=== PATIENT | female | born 1975 | race Caucasian/White ===

== ENCOUNTER 2020-07-28 10:50 | Outpatient (CLI) | payer OTHER, SELFPAY ==
--- NOTE | 2020-07-28 10:58 | MM_ITS ---
WS: [id number] BILATERAL SCREENING DIGITAL MAMMOGRAM WITH CAD HISTORY: SCREENING COMPARISON: 07/24/2018 and 05/05/2017 Bilateral CC and MLO views submitted. Computer aided detection analyzed. Breast composition: The breasts are heterogeneously dense, which may obscure small masses. No suspici ous masses, microcalcifications or architectural distortion. MM/[id number] IMPRESSION: BI-RADS: 1-Negative FOLLOW UP: 1 Year Follow-up
== END 2020-07-28 10:51 | disposition home or self-care (01) ==
LOC: RADSHAW 10:55
PROVIDERS: Visit Provider Nurse Practitioner Family
DX: Z12.31 Encounter for screening mammogram for malignant neoplasm of breast (principal)
CPT/HCPCS: 77067

== ENCOUNTER 2021-07-06 09:58 | Outpatient (CLI) | payer OTHER, SELFPAY ==
--- NOTE | 2021-07-06 10:11 | MM_ITS ---
WS: [id number] Bilateral screening 3D tomosynthesis digital mammogram, 07/06/2021 Clinical Data: SCREENING Comparison: 07/28/2020, 07/24/2018, 05/05/2017. Findings: The breast parenchymal pattern shows heterogeneous density. No spiculated masses or clustered calcifi cations are seen. There are no secondary signs of carcinoma. MM/[id number] Impression: 1. Negative bilateral mammogram unchanged. 2. Recommend annual screening mammograms. BIRADS: 1-Negative FOLLOW UP: 1 Year Follow-up The CAD plan checker was used.
== END 2021-07-06 09:59 | disposition home or self-care (01) ==
LOC: RAD 10:04
PROVIDERS: Visit Provider Family Medicine
DX: Z12.31 Encounter for screening mammogram for malignant neoplasm of breast (principal)
CPT/HCPCS: 77063; 77067

== ENCOUNTER 2022-08-16 09:30 | Outpatient (CLI) | payer OTHER, SELFPAY ==
--- NOTE | 2022-08-16 09:37 | MM_ITS ---
WS: [id number] DIAGNOSTIC BILATERAL DIGITAL BREAST TOMOSYNTHESIS MAMMOGRAPHY WITH CAD LEFT breast ultrasound, limited HISTORY: LT BREAST LUMP COMPARISON: 07/06/2021 and 07/28/2020 TECHNIQUE: Bilateral craniocaudad, mediolateral oblique, and mediolateral views are submitted with to mosynthesis and SM. Spot compression LEFT CC. Computer aided detection utilized. Breast composition: The breasts are heterogeneously dense, which may obscure small masses. There is a new spiculated mass centered in the medial inferior LEFT breast measuring 3.4 x 3.1 cm. High density mass with irregular borders. This is new since 07/06/2021. No additional abnormality. LEFT breast ultrasound, limited. Irregular, spiculated hypoechoic mass with increased vascularity in the LEFT breast at 9:00, 3 cm fro m the nipple. Mass corresponds to the mammographic abnormality. Mass measures 2.5 x 2.6 x 3.5 cm. Thi s mass may extend into the subcutaneous soft tissue. Mass does appear to extend intraductal. Normal L EFT axillary lymph nodes. Normal vascularity. Normal preservation of the fatty hilum. MM/[id number] IMPRESSION: BI-RADS: 5-Highly Suggestive of Malignancy FOLLOW UP: Biopsy Recommended Ultrasound-guided biopsy recommended LEFT breast mass at 9:00. Notified Michela Gomez APRN CNM [facility] at 08/16/2022 10:40 AM. Discussed report with Dayana.
== END 2022-08-16 09:31 | disposition home or self-care (01) ==
DX: N63.24 Unspecified lump in the left breast, lower inner quadrant (principal)
CPT/HCPCS: 76642; 77062; G0279

== ENCOUNTER 2022-08-28 13:57 | Outpatient (CLI) | payer MEDICAID, SELFPAY ==
--- NOTE | 2022-08-28 14:03 | US_ITS ---
WS: [id number] ULTRASOUND-GUIDED LEFT BREAST BIOPSY CLINICAL INFORMATION: LUMP IN BREAST COMPARISON: August 16, 2022 FINDINGS: The procedure including risks, benefits, and complications were discussed with the patient who agreed to proceed. Using sterile technique patient was prepped and draped in the usual sterile fashion. Aft er 1% lidocaine utilizing real-time ultrasound guidance 8 14-gauge cores were obtained of the LEFT br east lesion at the 9 o'clock position 3 cm from the nipple. Subsequently a titanium clip was placed i n the biopsy cavity. No immediate complications. Pathology demonstrates: A. Breast, left, 9 o'clock, 3 cm from nipple , ultrasound-guided biopsy: - Invasive ductal carcinoma, NOS. - Anders Corado grade 3 (score 8). - Breast prognostic profile and additional BRCA 1/2 mutation testing has been performed. US/[id number] IMPRESSION: 1. Uncomplicated ultrasound-guided LEFT breast biopsy. 2. The pathology demonstrates invasive ductal carcinoma. 3. Breast cancer prognostic profile pending. BI-RADS: 6-Known Biopsy-Proven Malignancy FOLLOW UP: Surgical Biopsy Recommended Recommend Breast surgery consultation. Notified Michela Gomez APRN CNM [facility] at 08/29/2022 11:38 AM.
[2022-09-02 12:26] LABS: Breast Profile ER,PR,HER2,Ki-6 See Report
[2022-09-17 08:16] LABS: Miscellaneous Test See Scanned Lab Rpt
== END 2022-08-28 13:58 | disposition home or self-care (01) ==
PROVIDERS: Visit Provider Advanced Practice Midwife
DX: C50.812 Malignant neoplasm of overlapping sites of left female breast (principal)
CPT/HCPCS: 19083; 81162; 88305; 88361; 88374

== ENCOUNTER 2023-01-01 18:52 | Observation (INO) | payer MEDICAID, SELFPAY ==
[2023-01-01 19:05] VITALS: BP 157/96; PULSE 119; RESP 16; TEMP 38; O2SAT 96; BMI 29.5
--- NOTE | 2023-01-01 19:56 | CTR_ITS ---
PROCEDURE INFORMATION: Exam: CT Abdomen And Pelvis With Contrast Exam date and time: 01/01/2023 8:14 PM Age: 47 years old Clinical indication: Pain; Other: Rectal abscess TECHNIQUE: Imaging protocol: Computed tomography of the abdomen and pelvis with contrast. Radiation optimization: All CT scans at this facility use at least one of these dose optimization techniques: automated exposure control; mA and/or kV adjustment per patient size (includes targeted exams where dose is matched to clinical indication); or iterative reconstruction. Contrast material: OMNI 350; Contrast volume: 100 ml; Contrast route: INTRAVENOUS (IV); REPORTING DATA: Count of CT and Cardiac NM exams in prior 12 months: This patient has received 0 known CTs and 0 known cardiac nuclear medicine studies in the 12 months prior to the current study. COMPARISON: CR XR chest 1V [id number] 06/24/2017 7:10 PM RADIATION DOSE METRICS: Total DLP (mGy-cm): 1076 FINDINGS: Lungs: Atelectatic changes at the lung bases. Liver: Unremarkable. Gallbladder and bile ducts: Mild biliary ductal dilation which is likely related to post cholecystectomy state. Pancreas: Unremarkable. Spleen: Unremarkable. Adrenal glands: Unremarkable. Kidneys and ureters: Unremarkable. No hydronephrosis. Stomach and bowel: Unremarkable. No bowel obstruction. Appendix: No evidence of appendicitis. Intraperitoneal space: Unremarkable. Vasculature: Minimal atherosclerotic calcification of the abdominal aorta. Lymph nodes: Unremarkable. Urinary bladder: Unremarkable as visualized. Reproductive: Unremarkable as visualized. Bones/joints: No acute osseous abnormality. Soft tissues: Thick-walled peripherally enhancing soft tissue density in the left perineum measuring 3.8 cm with soft tissue stranding extending superiorly within the left perianal fat between the internal and external sphincter. Mild stranding within the left ischioanal fossa external to the external sphincter. CT/CT abdomen pelvis w con* [id number] IMPRESSION: Thick-walled peripherally enhancing soft tissue density in the left perineum measuring 3.8 cm likely representing phlegmon and early left perianal abscess formation.
--- NOTE | 2023-01-01 19:59 | ED_ITS ---
HPI - Skin/Abscess/Foreign Bdy General: Chief complaint: Skin/Abscess/Foreign Body Stated complaint: on chemo, has fever, rectal pain Time Seen by Provider: 01/01/23 19:30 Source: patient Mode of arrival: ambulatory Limitations: no limitations History of Present Illness: 47-year-old female history of breast cancer she is currently on chemo she had 1 chemo treatment that was a week ago Friday she states that she been having some rectal pain today she had spiked a fever is febrile here. She states that when she went to the bathroom she had feared out that she had an abscess as it opened up and started draining she states she had a large amount of purulent drainage that is continuing draining still. She does have pain at the site rates the pain a 5 out of 10. Associated symptoms: Reports chills and fever(s); Deny nausea or vomiting Review of Systems Const: Reports: fever(s) and chills; Denies: body aches or change in appetite Eyes: Denies: blurry vision or eye discomfort ENMT: Denies: throat pain or dental pain Card: Denies: chest pain Resp: Denies: dyspnea GI: Denies: abdominal pain, nausea, vomiting or diarrhea : Denies: dysuria Musc: Denies: neck pain or back pain Skin/Breast: Denies: rash Neuro: Denies: headache(s) Physical Exam Const: COMMON NORMALS: no acute distress, patient oriented x3 and healthy appearing HENMT: COMMON NORMALS: normocephalic and atraumatic HEAD & SCALP: normocephalic and atraumatic Neck/C-Spine: COMMON NORMALS: full ROM and supple Chest: COMMONS NORMALS: normal inspection of the chest and normal palpation of entire chest wall Resp: COMMON NORMALS: normal respiratory effort, No retractions, No use of accessory muscles and clear to auscultation bilaterally AUSCULTATION: clear to auscultation bilaterally Cardio: COMMON NORMALS: regular rate, regular rhythm and No murmurs present (Cardio) RATE: regular rate RHYTHM: regular rhythm GI: COMMON NORMALS: Normal to inspection, nondistended, normoactive bowel sounds present, Soft to palpation, non-tender and no masses PALPATION: Yes Soft to palpation OTHER: Abscess noted on the left inner buttocks that is currently open and draining purulent material Extremity: COMMON NORMALS: normal to inspection and full ROM Neuro: COMMON NORMALS: patient oriented x3, moves all extremities and no focal motor deficits Psych: COMMON NORMALS: mental status grossly normal, Normal thought process present and cooperative THOUGHT PROCESS: Normal thought process present Skin: COMMON NORMALS: no rashes or lesions noted and no wounds GENERAL SKIN EXAM: no rashes or lesions noted Course Vital Signs: Vital signs: Vital Signs Temperature 100.4 F H 01/01/23 19:05 Pulse Rate 119 H 01/01/23 19:05 Respiratory Rate 16 01/01/23 19:05 Blood Pressure 157/96 01/01/23 19:05 Pulse Oximetry 96 01/01/23 19:05 Oxygen Delivery Me thod Room Air 01/01/23 19:05 MDM - Skin/Abscess/Foreign Bdy Medicial Decision Making Patient presents here with a fever she is also found to have a perianal abscess. On exam the abscess is already open and draining at this time does not require further incision she is on chemo spoke to hospitalist along with general surgeon will admit on observation for IV antibiotics. Medical Records I reviewed the patient's medical records. Lab Data I reviewed the patient's lab results. 01/01/23 20:11 01/01/23 20:11 Radiology Impressions Abdomen/Pelvis CT 01/01/23 19:56 IMPRESSION: Thick-walled peripherally enhancing soft tissue density in the left perineum measuring 3.8 cm likely representing phlegmon and early left perianal abscess formation. Laboratory Results WBC 10.90 10^3/uL (3.29-11.43) 01/01/23 20:11 RBC 4.60 10^6/uL (3.85-5.65) 01/01/23 20:11 Hgb 13.70 g/dL (11.27-16.99) 01/01/23 20:11 Hct 42.3 % (36-47) 01/01/23 20:11 MCV 92.0 fl (85-98) 01/01/23 20:11 MCH 29.8 pg (27-33) 01/01/23 20:11 MCHC 32.4 g/dL (30-55) 01/01/23 20:11 RDW 13.6 % (12.1-15.1) 01/01/23 20:11 Plt Count 225 10^3/cmm (157-399) 01/01/23 20:11 MPV 9.1 fL (7.4-10.4) 01/01/23 20:11 Neut % (Auto) 56.4 % 01/01/23 20:11 Lymph % (Auto) 25.5 % 01/01/23 20:11 Chambers % (Auto) 12.1 % 01/01/23 20:11 Eos % (Auto) 0.3 % 01/01/23 20:11 Baso % (Auto) 0.7 % 01/01/23 20:11 Neut # (Auto) 6.15 10^3/uL (1.8-7.7) 01/01/23 20:11 Lymph # (Auto) 2.8 10^3/uL (0.8-4.8) 01/01/23 20:11 Chambers # (Auto) 1.3 10^3/uL (0.2-0.9) H 01/01/23 20:11 Eos # (Auto) 0.0 10^3/uL (0.0-0.8) 01/01/23 20:11 Baso # (Auto) 0.1 10^3/uL (0.0-0.1) 01/01/23 20:11 Nucleated RBC % (auto) 0 % 01/01/23 20:11 Nucleated RBCs # 0.0 /100WBC 01/01/23 20:11 Sodium 138 mmol/L (136-145) 01/01/23 20:11 Potassium 4.2 mmol/L (3.5-5.1) 01/01/23 20:11 Chloride 102 mmol/L (98-107) 01/01/23 20:11 Carbon Dioxide 24 mmol/L (22-29) 01/01/23 20:11 Anion Gap 16.2 (5-19) 01/01/23 20:11 BUN 11 mg/dL (6-20) 01/01/23 20:11 Creatinine 0.7 mg/dL (0.5-0.9) 01/01/23 20:11 GFR Calculation 90.5 mL/min (90-130) 01/01/23 20:11 Glucose 109 mg/dL (65-115) 01/01/23 20:11 Calculated Osmolality 286 mOsm/kg (285-295) 01/01/23 20:11 Lactic Acid 1.3 mmol/L (0.5-2.2) 01/01/23 20:11 Calcium 9.1 mg/dL (8.5-10.5) 01/01/23 20:11 Total Bilirubin 0.2 mg/dL (0.15-1.2) 01/01/23 20:11 AST 18 U/L (0-32) 01/01/23 20:11 ALT 37 U/L (0-33) H 01/01/23 20:11 Alkaline Phosphatase 94 U/L (35-105) 01/01/23 20:11 Total Protein 7.1 g/dL (6.6-8.7) 01/01/23 20:11 Albumin 3.9 g/dL (3.5-5.2) 01/01/23 20:11 Globulin 3.2 g/dL (1.3-4.6) 01/01/23 20:11 All radiology interpretation(s) finalized by discharge Discharge Plan Discharge Patient Disposition: Placed in Observation Clinical Impression: Abscess, perianal, Fever Condition: Stable Coding Level of Care Code ED Unit Secy for Nilo Lauren
[2023-01-01] MEDS: sodium chloride 0.9% 1,000 ML 999 ML IV (20:06)
[2023-01-01] MEDS: HYDROmorphone 1 mg/mL INJ 1 mL IVP (20:06)
[2023-01-01] MEDS: ondansetron 2 mg/ML SDV 2 mL 4 MG IVP (20:06)
[2023-01-01 20:31] LABS: Basophils # 0.1 10^3/uL (0.0-0.1); Basophils % 0.7 %; Eosinophils % 0.3 %; Hematocrit 42.3 % (36-47); Lymphocytes # 2.8 10^3/uL (0.8-4.8); Lymphocytes % 25.5 %; Mean Corpuscular HGB Conc 32.4 g/dL (30-55); Mean Corpuscular Hemoglobin 29.8 pg (27-33); Mean Platelet Volume 9.1 fL (7.4-10.4); Monocytes # 1.3 10^3/uL (0.2-0.9); Monocytes % 12.1 %; Neutrophils # 6.15 10^3/uL (1.8-7.7); Neutrophils % 56.4 %; Nucleated Red Blood Cells % 0 %; Platelet Count 225 10^3/cmm (157-399); Red Cell Distribution Width 13.6 % (12.1-15.1)
[2023-01-01 20:51] LABS: Alanine Aminotransferase 37 U/L (0-33); Albumin Level 3.9 g/dL (3.5-5.2); Alkaline Phosphatase 94 U/L (35-105); Anion Gap 16.2 (5-19); Aspartate Amino Transferase 18 U/L (0-32); Blood Urea Nitrogen 11 mg/dL (6-20); Calcium 9.1 mg/dL (8.5-10.5); Carbon Dioxide 24 mmol/L (22-29); Chloride 102 mmol/L (98-107); Globulin 3.2 g/dL (1.3-4.6); Glomerular Filtration Rate 90.5 mL/min (90-130); Glucose 109 mg/dL (65-115); Osmolality Calculated 286 mOsm/kg (285-295); Potassium 4.2 mmol/L (3.5-5.1); Sodium 138 mmol/L (136-145); Total Bilirubin 0.2 mg/dL (0.15-1.2); Total Protein 7.1 g/dL (6.6-8.7)
[2023-01-01 20:52] LABS: Lactic Sepsis W/Reflex 1.3 mmol/L (0.5-2.2)
--- NOTE | 2023-01-01 20:59 | PM.HP ---
Providers/Chief Complaint Admitting Physician: Jaiden Olsen MD Chief Complaint: on chemo, has fever, rectal pain History of Present Illness Nancie Brown is a 47 year old female with a past medical history significant for left-sided invasive ductal carcinoma who presents to the emergency department with perirectal pain. Patient reports symptoms started last Friday. She was seen by her provider with concern for hemorrhoids, recommending symptomatic support. Symptoms continued to worsen to the pain it was difficult to ambulate due to the pain. She endorses associated fever as well. In the ED, there was concern for perirectal abscess. CT imaging showed a 3.8 cm likely representing phlegmon and early left perianal abscess formation. Per report, ED provider noted purulence suggesting drainage. Patient also endorses improvement in pressure symptoms. Patient notes recent constipation attributed to chemotherapy treatment requiring fairly recent enema and suppository. She does have a history of a prior perirectal abscess in 2009. Of note, patient is on treatment for left-sided breast cancer. She is receiving her cancer care at [facility]. She reports she has updated her oncology team regarding her infection. Review of Systems Narrative: A complete review of systems was obtained and is negative except as stated in HPI. Medications/Allergies Home Medications Medication Instructions Recorded Confirmed Last Taken Type alprazolam 0.25 mg tablet (Xanax) 0.25 mg PO TID PRN Anxiety 01/01/23 01/01/23 Unknown History calcium carb-ergocalciferol (vit 1 tab PO BID 01/01/23 01/01/23 01/01/23 History D2) 600 mg calcium-200 unit tablet dexamethasone 4 mg tablet 4 mg PO DAILY PRN after chemo 01/01/23 01/01/23 1 Week Ago History ~12/25/22 hydroxyzine HCl 25 mg tablet 25 mg PO QID PRN Anxiety 01/01/23 01/01/23 1 Day Ago History ~12/31/22 loratadine 10 mg tablet (Claritin) 10 mg PO DAILY 01/01/23 01/01/23 01/01/23 History multivitamin 1 tab PO DAILY 01/01/23 01/01/23 01/01/23 History ondansetron 8 mg disintegrating 8 mg PO Q8H PRN Nausea 01/01/23 01/01/23 3 Days Ago History tablet ~12/29/22 polyethylene glycol 3350 17 gram 17 g PO DAILY 01/01/23 01/01/23 01/01/23 History oral powder packet (Miralax) prochlorperazine maleate 10 mg 10 mg PO Q6H PRN Nausea 01/01/23 01/01/23 3 Days Ago History tablet (Compazine) ~12/29/22 sennosides 8.6 mg capsule (senna) 8.6 mg PO DAILY 01/01/23 01/01/23 01/01/23 History Allergies Allergy/AdvReac Type Severity Reaction Status Date / Time No Known Allergies Allergy Verified 01/01/23 21:37 PFSH Acute PFSH: Medical History (Updated 01/01/23 @ 22:32 by Jaiden Olsen MD) Breast cancer, left breast Cervical dysplasia Migraine Surgical History (Updated 01/01/23 @ 22:17 by Jaiden Olsen MD) H/O left breast biopsy History of cholecystectomy Family History (Updated 01/01/23 @ 22:08 by Jaiden Olsen MD) Mother Sarcoidosis Social History (Updated 01/01/23 @ 22:30 by Jaiden Olsen MD) Smoking and tobacco/nicotine status: former use of tobacco/nicotine Alcohol intake: never Substance/Drug Use: never Vitals/I&O/Wt Last Vital Signs Temp 100.4 F H 01/01/23 19:05 Pulse 119 H 01/01/23 19:05 Resp 16 01/01/23 19:05 BP 157/96 01/01/23 19:05 Pulse Ox 96 01/01/23 19:05 O2 Del Method Room Air 01/01/23 19:05 Weight last 48 hrs Weight 90.718 kg Physical Exam Narrative: General: Patient is awake and alert. Very pleasant. Head: Normocephalic. Atraumatic. Neck: No JVD. Cardiovascular: RRR. No gallops. No murmurs. Lungs: Clear to auscultation, no use of accessory muscles, no crackles or wheezes. Skin: No jaundice. No rashes. Abdomen: Normal bowel sounds, abdomen soft and nontender. Extremities: No cyanosis or clubbing. Rectal: Perirectal inflammation palpated. Tender to palpation. Musculoskeletal: No swollen or erythematous joints. Neurological: Moves all 4 extremities. No myoclonus. Data 01/01/23 20:11 01/01/23 20:11 A&P Assessment and plan (1) Abscess, perianal: Wound culture obtained Status post vancomycin in ED Check MRSA swab Start Zosyn for broad gram negative and anaerobic coverage General surgery consulted, appreciate recommendations NPO after midnight for general surgery evaluation Multimodal pain control (2) Fever: As above (3) Breast cancer, left breast: Immunosuppressed 2/2 treatment (4) Constipation: Continue home Senna and MiraLAX May need to escalate bowel regimen Plan DVT ppx: Lovenox Attestations Medical Necessity Statement*: Patient presents with fevers in the setting of immunosuppression from cancer treatment, found to have perianal abscess with expected hospitalization not to cross two midnights for general surgery evaluation, IV antibiotics and supportive care. Coding Level of Care Code Acute Code for [facility] Diagnoses Abscess, perianal K61.0 Fever R50.9 Breast cancer, left breast C50.912 Constipation K59.00
[2023-01-01] MEDS: vancomycin 1,000 MG in sodium chloride 0.9% 250 ML 250 MG IV (21:10)
[2023-01-01 21:19] VITALS: BP 123/77; PULSE 88; RESP 16; O2SAT 95
[2023-01-01 21:28] LABS: Add Urine Microscopic? YES; Bilirubin Urine Neg (Negative); Blood Urine 2+ (Negative); Glucose Urine UA Norm (Normal); Ketones Urine Negative (Negative); Leukocyte Esterase Urine Negative (Negative); Nitrate Urine Negative (Negative); Protein Urine Neg (Negative); Specific Gravity, Urine 1.005 (1.005-1.030); Urine Appearance Clear (CLEAR); Urine Color Yellow (Yellow); Urobilinogen Urine Neg (Negative); pH Urine 7 (5-7)
[2023-01-01 21:29] LABS: Add Urine Culture? No; Bacteria Urine 1+ /hpf
[2023-01-01 21:32] VITALS: BP 124/76; PULSE 109; RESP 17; TEMP 37.1; O2SAT 96
[2023-01-01 21:44] VITALS: BP 123/77; PULSE 88; RESP 16; TEMP 38; O2SAT 95
[2023-01-01 21:57] VITALS: RESP 16
[2023-01-01] MEDS: piperacillin-tazobactam 3.375 GM in sodium chloride 0.9% (plus) 50 ML IV (21:57)
[2023-01-01] MEDS: oxyCODONE-APAP 5-325 mg Tablet 1 TAB PO (21:57)
[2023-01-01 22:00] VITALS: PULSE 99
[2023-01-01 22:24] LABS: Procalcitonin 0.08 ng/mL (0-0.5)
--- NOTE | 2023-01-01 23:16 | PC.NURSE ---
Patient states that one of her doctors told her she can't take blood thinners, not even Ibuprofen. Dr. Olsen notified that patient stated this and ordered to d/c Lovenox and order SCDs.
[2023-01-02] VITALS (26 sets, daily range): BP systolic 102–135; BP diastolic 62–83; PULSE 75–99; RESP 13–20; TEMP 36.2–36.9; O2SAT 91–97; BMI 34.9
[2023-01-02] MEDS: HYDROmorphone 1 mg/mL INJ 1 mL 0.2 MG IVP ×3 (00:14→22:22)
[2023-01-02] MEDS: oxyCODONE-APAP 5-325 mg Tablet 1 TAB PO ×3 (05:13→20:43)
[2023-01-02] MEDS: ondansetron 2 mg/ML SDV 2 mL 4 MG IVP ×3 (05:13→20:43)
[2023-01-02] MEDS: piperacillin-tazobactam 3.375 GM in sodium chloride 0.9% (plus) 50 ML IV ×3 (05:13→22:15)
[2023-01-02 05:23] LABS: Basophils # 0.1 10^3/uL (0.0-0.1); Basophils % 1.3 %; Eosinophils % 0.3 %; Hematocrit 37.6 % (36-47); Lymphocytes # 2.3 10^3/uL (0.8-4.8); Lymphocytes % 35.3 %; Mean Corpuscular HGB Conc 32.2 g/dL (30-55); Mean Corpuscular Hemoglobin 29.8 pg (27-33); Mean Corpuscular Volume 92.6 fl (85-98); Mean Platelet Volume 9.4 fL (7.4-10.4); Monocytes # 0.6 10^3/uL (0.2-0.9); Monocytes % 9.1 %; Neutrophils # 3.15 10^3/uL (1.8-7.7); Neutrophils % 49.3 %; Nucleated Red Blood Cells % 0 %; Platelet Count 196 10^3/cmm (157-399); Red Blood Count 4.06 10^6/uL (3.85-5.65); Red Cell Distribution Width 13.5 % (12.1-15.1); White Blood Count 6.38 10^3/uL (3.29-11.43)
[2023-01-02 05:43] LABS: Alanine Aminotransferase 400 U/L (0-33); Albumin Level 3.2 g/dL (3.5-5.2); Alkaline Phosphatase 85 U/L (35-105); Anion Gap 13.3 (5-19); Aspartate Amino Transferase 393 U/L (0-32); Blood Urea Nitrogen 8 mg/dL (6-20); Calcium 8.6 mg/dL (8.5-10.5); Carbon Dioxide 26 mmol/L (22-29); Chloride 105 mmol/L (98-107); Globulin 2.7 g/dL (1.3-4.6); Glomerular Filtration Rate 90.5 mL/min (90-130); Glucose 113 mg/dL (65-115); Magnesium 2.2 mg/dL (1.7-2.3); Osmolality Calculated 289 mOsm/kg (285-295); Phosphorus 4.4 mg/dL (2.5-4.5); Potassium 4.3 mmol/L (3.5-5.1); Sodium 140 mmol/L (136-145); Total Bilirubin 0.4 mg/dL (0.15-1.2); Total Protein 5.9 g/dL (6.6-8.7)
--- NOTE | 2023-01-02 06:59 | P.CONIM_ITS ---
Providers/Reason For Consult Consulting Physician/Specialty*: General surgery Reason for Consult*: Perianal abscess Attending Physician: Jaiden Olsen MD History of Present Illness History of Present Illness Nancie Brown is a 47 year old female With history of breast cancer who is currently receiving chemotherapy, after last cycle of chemotherapy patient became very constipated, after that she felt a lump on the perianal margin on the left side, long was getting bigger until yesterday night when he is she noticed having fever and sudden drainage from the area of purulent material. She presented to the ED, after evaluation by the emergency department she was admitted for IV antibiotics and possible I&D of perirectal abscess. Review of Systems General: Reports: 10 or more systems reviewed and unremarkable except in HPI and below Medications/Allergies Home Medications Medication Instructions Recorded Confirmed Last Taken Type alprazolam 0.25 mg tablet (Xanax) 0.25 mg PO TID PRN Anxiety 01/01/23 01/01/23 Unknown History calcium carb-ergocalciferol (vit 1 tab PO BID 01/01/23 01/01/23 01/01/23 History D2) 600 mg calcium-200 unit tablet dexamethasone 4 mg tablet 4 mg PO DAILY PRN after chemo 01/01/23 01/01/23 1 Week Ago History ~12/25/22 hydroxyzine HCl 25 mg tablet 25 mg PO QID PRN Anxiety 01/01/23 01/01/23 1 Day Ago History ~12/31/22 loratadine 10 mg tablet (Claritin) 10 mg PO DAILY 01/01/23 01/01/23 01/01/23 History multivitamin 1 tab PO DAILY 01/01/23 01/01/23 01/01/23 History ondansetron 8 mg disintegrating 8 mg PO Q8H PRN Nausea 01/01/23 01/01/23 3 Days Ago History tablet ~12/29/22 polyethylene glycol 3350 17 gram 17 g PO DAILY 01/01/23 01/01/23 01/01/23 History oral powder packet (Miralax) prochlorperazine maleate 10 mg 10 mg PO Q6H PRN Nausea 01/01/23 01/01/23 3 Days Ago History tablet (Compazine) ~12/29/22 sennosides 8.6 mg capsule (senna) 8.6 mg PO DAILY 01/01/23 01/01/23 01/01/23 His tory Allergies Allergy/AdvReac Type Severity Reaction Status Date / Time No Known Allergies Allergy Verified 01/01/23 21:37 Current Medications Generic Name Dose Route Start Last Admin Trade Name Freq PRN Reason Stop Dose Admin Hydromorphone HCl 0.2 mg 01/01/23 21:37 01/02/23 00:14 Hydromorphone 1 Mg/Ml Inj 1 Ml IVP 0.2 mg Q2H PRN Administration pain, 8-10 Piperacillin Sod/Tazobactam 50 mls @ 12.5 mls/hr 01/01/23 22:00 01/02/23 05:13 Sod 3.375 gm/ Sodium Chloride IV 12.5 mls/hr Q8H DESHAWN Administration Ondansetron HCl 4 mg 01/01/23 21:32 01/02/23 05:13 Ondansetron 2 Mg/Ml Sdv 2 Ml IVP 4 mg Q8H PRN Administration vomiting, or N/V if npo Oxycodone/Acetaminophen 1 tab 01/01/23 21:32 01/02/23 05:13 Oxycodone-Apap 5-325 Mg Tablet PO 1 tab Q4H PRN Administration SEVERE PAIN PFSH Acute PFSH: Medical History (Updated 01/01/23 @ 22:32 by Jaiden Olsen MD) Breast cancer, left breast Cervical dysplasia Migraine Surgical History (Updated 01/01/23 @ 22:17 by Jaiden Olsen MD) H/O left breast biopsy History of cholecystectomy Family History (Updated 01/01/23 @ 22:08 by Jaiden Olsen MD) Mother Sarcoidosis Social History (Updated 01/01/23 @ 22:30 by Jaiden Olsen MD) Smoking and tobacco/nicotine status: former use of tobacco/nicotine Alcohol intake: never Substance/Drug Use: never Vitals/I&O/Wt Last Vital Signs Temp 98.1 F 01/02/23 03:58 Pulse 80 01/02/23 05:44 Resp 16 01/02/23 05:13 BP 120/78 01/02/23 03:58 Pulse Ox 96 01/02/23 03:58 O2 Del Method Room Air 01/02/23 03:58 01/01/23 01/01/23 01/02/23 14:59 22:59 06:59 Intake Total 1250 / 1250 50 / 1300 Output Total 1000 / 1000 Balance 1250 / 1250 -950 / 300 Weight last 48 hrs Weight 236 lb 7 oz Weight 229 lb 12.8 oz Weight 200 lb Physical Exam Narrative: General : Patient is well developed , no acute distress, oriented x3 Head : Normal cephalic, a-traumatic. Nose : Mucous membranes are without erythema. Lungs : Equal chest rise bilaterally, no use of accessory muscles, trachea is midline. CV : Rate and rhythm are normal. Abdomen : Soft, ND, NT, no g/r/m Rectal exam: Digital rectal examination not performed due to patient poor tolerance, on the left fax below the anal margin there is 1.5 cm area of erythema with some small amount of purulent drainage, surrounding there is about a 3 cm area of induration of the tissue. Consistent with phlegmonous changes and abscess. Extremities : No edema. Upper extremities are normal bilaterally. Back : non-tender to palpation, no CVA tenderness. Data 01/02/23 04:55 01/02/23 04:55 Micro: Microbiology 01/01/23 20:36 Blood Culture - Preliminary Blood SPECIMEN COLLECTED 01/01/23 20:48 Blood Culture - Preliminary Blood SPECIMEN COLLECTED A&P Assessment and plan (1) Abscess, perianal: After complete history, physical examination and review of all available clinical data the following is my assessment. The patient will benefit from formal I&D of perirectal abscess to ensure complete drainage as well as to wa shout the cavity. I have discussed the risk benefits of the procedure including the risks of bleeding, persistent infection, progression to perineal sepsis, damage to the anal sphincter causing incontinence, risks of fistula in ano, need for additional interventions. After discussion patient agrees with the risk benefits and wishes to proceed.Procedure will be booked for the today. Coding Level of Care Code 24661 Diagnoses Abscess, perianal K61.0
[2023-01-02] MEDS: acetaminophen 325 mg Tablet 650 MG PO (07:19)
[2023-01-02] MEDS: prochlorperazine 10 mg Tablet PO (07:21)
--- NOTE | 2023-01-02 10:27 | ANES.PREANE2 ---
Pre-Anesthetic Assessment Height/Weight: Height 1.75 m Weight 107.246 kg Temp Pulse Resp BP Pulse Ox O2 Del Method 97.7 F 75 16 135/81 95 Room Air 01/02/23 08:00 01/02/23 08:00 01/02/23 08:00 01/02/23 08:00 01/02/23 08:00 01/02/23 03:58 Preop Diagnosis: perirectal abscess Operation Date: 01/02/23 12:10 Proposed Procedures p Incision And Drainage Incision And Drainage Perirectal Abscess(Not Applicable) - Alfie Blackwell MD Familial anesthetic complications: PONV even with port placement Was Beta Edith taken within 24 hours: N/A Was Clonidine taken within 24 hours: N/A Last intake: Intake Last Liquid Date 01/01/23 Last Liquid Time 23:50 Last Solid Date 01/01/23 Last Solid Time 20:00 Social No alcohol and No tobacco Exam alert, oriented x 3, clear to auscultation bilaterally and regular rate & rhythm Airway Mallampati: Class II Dentition: caps and full [facility] breast cancer Anesthetic Plan ASA status: 2 Anesthesia: Choice Risk of > 500 ml blood loss (7ml/kg in children): No Medications/Allergies Home Medications Medication Instructions Recorded Confirmed Last Taken Type alprazolam 0.25 mg tablet (Xanax) 0.25 mg PO TID PRN Anxiety 01/01/23 01/01/23 Unknown History calcium carb-ergocalciferol (vit 1 tab PO BID 01/01/23 01/01/23 01/01/23 History D2) 600 mg calcium-200 unit tablet dexamethasone 4 mg tablet 4 mg PO DAILY PRN after chemo 01/01/23 01/01/23 1 Week Ago History ~12/25/22 hydroxyzine HCl 25 mg tablet 25 mg PO QID PRN Anxiety 01/01/23 01/01/23 1 Day Ago History ~12/31/22 loratadine 10 mg tablet (Claritin) 10 mg PO DAILY 01/01/23 01/01/23 01/01/23 History multivitamin 1 tab PO DAILY 01/01/23 01/01/23 01/01/23 History ondansetron 8 mg disintegrating 8 mg PO Q8H PRN Nausea 01/01/23 01/01/23 3 Days Ago History tablet ~12/29/22 polyethylene glycol 3350 17 gram 17 g PO DAILY 01/01/23 01/01/23 01/01/23 History oral powder packet (Miralax) prochlorperazine maleate 10 mg 10 mg PO Q6H PRN Nausea 01/01/23 01/01/23 3 Days Ago History tablet (Compazine) ~12/29/22 sennosides 8.6 mg capsule (senna) 8.6 mg PO DAILY 01/01/23 01/01/23 01/01/23 History Allergies Allergy/AdvReac Type Severity Reaction Status Date / Time No Known Allergies Allergy Verified 01/01/23 21:37 Current Medications Generic Name Dose Route Start Last Admin Trade Name Freq PRN Reason Stop Dose Admin Acetaminophen 650 mg 01/01/23 21:32 01/02/23 07:19 Acetaminophen 325 Mg Tablet PO 650 mg Q6H PRN Administration Mild/Mod Pain Or Temp >/= 101 Hydromorphone HCl 0.2 mg 01/01/23 21:37 01/02/23 00:14 Hydromorphone 1 Mg/Ml Inj 1 Ml IVP 0.2 mg Q2H PRN Administration pain, 8-10 Piperacillin Sod/Tazobactam 50 mls @ 12.5 mls/hr 01/01/23 22:00 01/02/23 10:10 Sod 3.375 gm/ Sodium Chloride IV Infused Q8H DESHAWN Infusion Loratadine 10 mg 01/02/23 09:00 01/02/23 08:59 Loratadine 10 Mg Tablet PO Not Given DAILY DESHAWN Ondansetron HCl 4 mg 01/01/23 21:32 01/02/23 05:13 Ondansetron 2 Mg/Ml Sdv 2 Ml IVP 4 mg Q8H PRN Administration vomiting, or N/V if npo Oxycodone/Acetaminophen 1 tab 01/01/23 21:32 01/02/23 05:13 Oxycodone-Apap 5-325 Mg Tablet PO 1 tab Q4H PRN Administration SEVERE PAIN Polyethylene Glycol 17 gm 01/02/23 09:00 01/02/23 08:59 Polyethylene Glycol 3350 Pkt 17 Gm PO Not Given DAILY DESHAWN Prochlorperazine 10 mg 01/01/23 21:55 01/02/23 07:21 Prochlorperazine 10 Mg Tablet PO 10 mg Q6H PRN Administration Nausea Senna 8.6 mg 01/02/23 09:00 01/02/23 08:59 Sennosides 8.6 Mg Tablet PO Not Given DAILY [facility] Medical History (Updated 01/01/23 @ 22:32 by Jaiden Olsen MD) Breast cancer, left breast Cervical dysplasia Migraine Surgical History (Updated 01/01/23 @ 22:17 by Jaiden Olsen MD) H/O left breast biopsy History of cholecystectomy Family History (Updated 01/01/23 @ 22:08 by Jaiden Olsen MD) Mother Sarcoidosis Social History (Updated 01/01/23 @ 22:30 by Jaiden Olsen MD) Smoking and tobacco/nicotine status: former use of tobacco/nicotine Alcohol intake: never Substance/Drug Use: never Data Anesthesia 01/02/23 04:55 01/02/23 04:55 Short CBC 01/01/23 01/02/23 Range/Units 20:11 04:55 WBC 10.90 6.38 (3.29-11.43) 10^3/uL Hgb 13.70 12.10 (11.27-16.99) g/dL Hct 42.3 37.6 (36-47) % MCV 92.0 92.6 (85-98) fl Plt Count 225 196 (157-399) 10^3/cmm Neut % (Auto) 56.4 49.3 % Neut # (Auto) 6.15 3.15 (1.8-7.7) 10^3/uL BMP 01/01/23 01/02/23 20:11 04:55 Sodium 138 140 Potassium 4.2 4.3 Chloride 102 105 Carbon Dioxide 24 26 BUN 11 8 Creatinine 0.7 0.7 Glucose 109 113 Calcium 9.1 8.6 Liver Function 01/01/23 01/02/23 Range/Units 20:11 04:55 Total Bilirubin 0.2 0.4 (0.15-1.2) mg/dL AST 18 393 H (0-32) U/L ALT 37 H 400 H (0-33) U/L Alkaline Phosphatase 94 85 (35-105) U/L Albumin 3.9 3.2 L (3.5-5.2) g/dL Urine 01/01/23 Range/Units 21:17 Urine Color Yellow (Yellow) Urine Appearance Clear (CLEAR) Urine pH 7 (5-7) Ur Specific [place] 1.005 (1.005-1.030) Urine Protein Neg (Negative) Urine Glucose (UA) Norm (Normal) Urine Ketones Negative (Negative) Urine Nitrate Negative (Negative) Urine Bilirubin Neg (Negative) Ur Leukocyte Esterase Negative (Negative) Urine RBC 5-10 H (0-2) /hpf Urine WBC None (0-5) /hpf Microbiology 01/01/23 20:36 Blood Culture - Preliminary Blood SPECIMEN COLLECTED 01/01/23 20:48 Blood Culture - Preliminary Blood SPECIMEN COLLECTED Cardiac Studies: No Data to Display
[2023-01-02] MEDS: sodium chloride 0.9% 1,000 ML 30 ML IV (10:49)
[2023-01-02] MEDS: scopolamine 1.5 Patch 1 PATCH TRANSDERMA (10:49)
[2023-01-02 11:15] LABS: OR HCG Qualitative Urine Negative (Negative)
--- NOTE | 2023-01-02 11:30 | P.PN_ITS ---
Subjective Subjective: Evaluated by general surgery today. Plan for operative intervention this afternoon. Medications: Reviewed: Yes Vitals/I&O/Wt Last Vital Signs Temp 98.3 F 01/02/23 13:00 Pulse 79 01/02/23 13:45 Resp 16 01/02/23 13:45 BP 115/76 01/02/23 13:45 Pulse Ox 91 01/02/23 13:45 O2 Del Method Room Air 01/02/23 13:45 01/01/23 01/02/23 01/02/23 22:59 06:59 14:59 Intake Total 1250 / 1250 50 / 1300 50 / 50 Output Total 1000 / 1000 1905 / 1905 Balance 1250 / 1250 -950 / 300 -1855 / -1855 Weight last 48 hrs Weight 107.246 kg Weight 104.236 kg Weight 90.718 kg Physical Exam Narrative: Patient in the operating room at the time of rounds. Will reassess postoperativ ryan. Data 01/02/23 04:55 01/02/23 04:55 Micro: Microbiology 01/01/23 20:36 Blood Culture - Preliminary Blood SPECIMEN COLLECTED 01/01/23 20:48 Blood Culture - Preliminary Blood SPECIMEN COLLECTED A&P Assessment and plan (1) Abscess, perianal: Wound culture obtained, currently pending Continue Zosyn and vancomycin for broad gram negative and anaerobic coverage General surgery consulted,Planned I&D today await OR cx Multimodal pain control to continue (2) Fever: related to acute infection (3) Breast cancer, left breast: uncertain what regimen she is on currently, will reassess (4) Constipation: Continue home Senna and MiraLAX Plan DVT ppx: Lovenox Attestations Medical Necessity Statement*: planned surgical intevrnetion today, iv abx, await cx Coding Level of Care Code Acute Code for Chg Fwd Diagnoses Abscess, perianal K61.0 Fever R50.9 Breast cancer, left breast C50.912 Constipation K59.00
[2023-01-02] MEDS: lidocaine 2% INJ 20 mL 10 ML INJECTION (11:50)
--- NOTE | 2023-01-02 12:05 | P.OP_ITS ---
Operative Report Date of procedure: January 02, 2023 Pre-op diagnosis: Perianal abscess Post-op diagnosis: Same Post-op findings: There was 3 cm perianal abscess on the left anal margin between 12 and 3:00. Procedure done: Incision and drainage of left perianal abscess, rectal exam under anesthesia Pathology: Wound cultures Surgeon: Alfie Blackwell MD Finisher Map And Chart: YNES OR STaff Brief History: Is a 47-year-old female with history of breast cancer currently undergoing chemotherapy, she presented yesterday to the emergency department with fever and purulent discharge from the anal margin. After discussion of risk and benefits I have decided to offer incision and drainage of left perianal abscess. Procedure: Patient was brought into the OR. She was placed in the lipectomy procedure. General esthesia was given. The perineum was prepped and draped in the usual sterile fashion. Timeout was conducted. I then proceeded to examine the perineal region and the rectum, there is evidence of hemorrhoids in the anterior and bilateral posterolateral columns as well as a small external hemorrhoid on the left posterolateral colon. There was no evidence of abscess or drainage into the rectum. There is she 0.5 cm punctum on the left side of the anal margin, I proceeded to incise this area with a 1 cm incision using an 11 blade. This gave me access to the abscess cavity and about 5 cc of purulent material was drained, cultures were taken. I then proceeded to deloculated cavity with finger blunt dissection, I also use a hemostat to ensure there is no fluid or loculation of the pockets of pus. Once the cavity was cleaned I proceeded to irrigate the cavity and then packed with quarter inch iodoform packing. A sterile dressing was applied. Patient tolerated well the procedure, was extubated and transferred to the PACU in stable condition. At the end of the procedure all counts were correct.
--- NOTE | 2023-01-02 12:09 | PM.MISC ---
Miscellaneous Note Purpose of Documentation: Update on patient care. Note: Left perianal abscess was drained in the OR. Cavity was packed with quarter inch iodoform packing. I can replace the packing at the bedside tomorrow. After that patient can go home with visiting nursing services or alternative she can remove the packing and do twice a day at sitz bath's. No residual abscess was noted, adequate source control was achieved.
--- NOTE | 2023-01-02 12:25 | ANE.PACU2 ---
Inpatient post-anesthesia follow up: Airway intact: Yes Vital signs: Temperature 97.1 F Pulse Rate 78 Respiratory Rate 19 Blood Pressure 108/73 Pulse Oximetry 96 Oxygen Delivery Me thod Room Air Oxygen Flow Rate Fraction of Inspir ed Oxygen Hydration adequate: Yes Nausea and vomiting: No Pain level: 1 Mental status: Baseline
[2023-01-02] MEDS: HYDROmorphone 1 mg/mL INJ 1 mL 0.4 MG IVP (13:34)
[2023-01-02] MEDS: ketorolac 30 mg/mL INJ 15 MG IVP ×2 (13:36→18:25)
--- NOTE | 2023-01-02 15:30 | PC.PHAR ---
Pharmacokinetic dosing service Date: 01/02/23 Time: 1531 Objective: Patient: Nancie Brown Floor: 266-1 Age: 47 yo Serum creatinine: 0.7 mg/dL Height: 69.0 Inches Weight (kg): 107.246 Diagnosis: Relevant medical/social history: Cultures and sensitivities: Other labs: Assessment: IBW (kg): 66.20 Dosing wt(kg): 107.246 Estimated Creatinine clearance (ml/min): 106.1 CRCL method: Cockcroft and Gault using ibw(default). Drug selected: Vancomycin Loading dose (mg): 0 Vd (liters): 96.5 (factor used: 0.9 L/kg) Ranulfo (hr-1): 0.092 Half life (hrs): 7.53 Recommended dose: 1500 mg Interval: 15 hrs Infusion time (hrs): 1.5 Predicted peak (mcg/mL): 19.4 Predicted trough (mcg/mL): 5.60 Total body weight is being used for vancomycin dosing. Renal function is stable [ ] /unstable [ ] Recommendations: Give Vancomycin 1500 mg q 15 hrs with an expected Cpeak of 19.4 mcg/ml and an expected Ctrough of 5.60 mcg/ml Renal dosing of other antibiotics (review renal dosing of other medications and list guidelines here): Thank you for the consult, will continue to follow. Signature: Gita Frias [facility]
[2023-01-02] MEDS: vancomycin 1,500 MG/300 ML PIGGYBACK 200 MG IV (16:35)
[2023-01-03] VITALS (7 sets, daily range): BP systolic 111–120; BP diastolic 69–78; PULSE 70–85; RESP 16–18; TEMP 36.6–36.8; O2SAT 94–96; BMI 35.2
[2023-01-03] MEDS: ketorolac 30 mg/mL INJ 15 MG IVP ×2 (01:52→07:57)
[2023-01-03] MEDS: HYDROmorphone 1 mg/mL INJ 1 mL 0.4 MG IVP ×2 (02:20→10:01)
[2023-01-03] MEDS: vancomycin 1,500 MG/300 ML PIGGYBACK 200 MG IV (03:47)
[2023-01-03] MEDS: piperacillin-tazobactam 3.375 GM in sodium chloride 0.9% (plus) 50 ML IV (05:19)
[2023-01-03 05:45] LABS: Basophils % 0.5 %; Eosinophils % 0.1 %; Hematocrit 35.5 % (36-47); Lymphocytes # 2.1 10^3/uL (0.8-4.8); Lymphocytes % 27.2 %; Mean Corpuscular HGB Conc 32.7 g/dL (30-55); Mean Corpuscular Hemoglobin 29.7 pg (27-33); Mean Corpuscular Volume 90.8 fl (85-98); Mean Platelet Volume 9.4 fL (7.4-10.4); Monocytes % 13.2 %; Neutrophils # 4.15 10^3/uL (1.8-7.7); Nucleated Red Blood Cells % 0 %; Platelet Count 230 10^3/cmm (157-399); Red Blood Count 3.91 10^6/uL (3.85-5.65); Red Cell Distribution Width 13.3 % (12.1-15.1); White Blood Count 7.56 10^3/uL (3.29-11.43)
[2023-01-03 06:03] LABS: Alanine Aminotransferase 298 U/L (0-33); Alkaline Phosphatase 84 U/L (35-105); Anion Gap 14.3 (5-19); Aspartate Amino Transferase 83 U/L (0-32); Blood Urea Nitrogen 10 mg/dL (6-20); Calcium 8.4 mg/dL (8.5-10.5); Carbon Dioxide 23 mmol/L (22-29); Chloride 106 mmol/L (98-107); Globulin 2.6 g/dL (1.3-4.6); Glomerular Filtration Rate 90.5 mL/min (90-130); Glucose 106 mg/dL (65-115); Osmolality Calculated 287 mOsm/kg (285-295); Potassium 4.3 mmol/L (3.5-5.1); Sodium 139 mmol/L (136-145); Total Bilirubin 0.2 mg/dL (0.15-1.2); Total Protein 5.6 g/dL (6.6-8.7)
[2023-01-03] MEDS: HYDROmorphone 1 mg/mL INJ 1 mL 0.2 MG IVP (06:22)
[2023-01-03] MEDS: ondansetron 2 mg/ML SDV 2 mL 4 MG IVP (06:22)
[2023-01-03] MEDS: oxyCODONE-APAP 5-325 mg Tablet 1 TAB PO (06:22)
[2023-01-03 06:34] LABS: Hepatitis A Antibody IgM Non-Reactive (Nonreactive); Hepatitis B Core AB, Total Non-Reactive (Nonreactive); Hepatitis B Surface AB 42.5 (11.5-1000); Hepatitis B Surface Antigen Non-Reactive (Nonreactive); Hepatitis C Virus Antibody Non-Reactive (Nonreactive)
[2023-01-03] MEDS: loratadine 10 mg Tablet PO (08:56)
[2023-01-03] MEDS: sennosides 8.6 mg Tablet PO (08:56)
[2023-01-03] MEDS: polyethylene glycol 3350 Pkt 17 gm PO (08:56)
[2023-01-03] MEDS: hyDROXYzine 25 mg Capsule PO (08:57)
--- NOTE | 2023-01-03 11:59 | P.DS_ITS ---
Discharge Providers Date of Admission: 01/01/23 21:00 Date of Discharge: January 03, 2023 Attending Provider at Admission: Jaiden Olsen MD Attending Provider at Discharge: Hiral Baez MD Diagnoses at Discharge Discharge Diagnosis (1) Abscess, perianal: Status: Acute (2) Fever: Status: Acute (3) Breast cancer, left breast: Status: Acute (4) Constipation: Status: Acute Reason for Visit Reason for Visit: on chemo, has fever, rectal pain Hospital Course Hospital Course Nancie Brown is a 47 year old female with a past medical history significant for left-sided invasive ductal carcinoma s/p mastectomy, currently on chemotherapy with Adriamycin/cyclophosphamide at [facility] LD Dec 20, who presented to the emergency department with perirectal pain and was found to have a 3.8 cm perierctal abscess. Patient has been dealing with constipation recently not adequately relieved by laxatives taken at home. She underwent incision and drainage by general surgery on January 02, 2023. Intra-Op findings included a 3 cm perianal abscess on the left anal margin between 12 and 3 o'clock position. She had a packing in place until this morning. It has been removed at the time of discharge and she is recommended to take sitz bath twice a day and follow-up with general surgery in 1 week. Lactulose has been added to her regimen. She is being discharged on empiric antibiotic coverage with oral Augmentin and levofloxacin, cultures remain pending from the operating room, may be followed up as outpatient. Incidentally noted to have transaminitis, AST increasing from 18--->393, trending down today at 83.ALT incraesing from 37--> 400, trending down at 298. Alkaline phosphatase and total bilirubin remained normal. Patient denied any abdominal pain. CT imaging of the abdomen and pelvis revealed a normal liver without any acute abnormalities. Acute hepatitis serology was negative. Unclear cause of transaminitis, may potentially be related to recent chemotherapy. Advised to repeat LFTs early next week to ensure that the downtrend continues. Physical Exam Narrative: General: No acute distress, AO x3 HEENT: PERRLA, pupils bilaterally equal and reactive, pallors not present Chest: Normal vesicular breath sounds, no added sounds, equal good air entry bilaterally CVS: S1-S2 regular, no murmurs, no tachycardia, no gallops, no rubs Abdomen: Soft, nontender, no organomegaly, bowel sounds present Neuro: No focal deficits, no facial deformity, AO x3, power 5/5 in all limbs Discharge Data Studies Completed and Pending Completed Studies During Hospitalization Category Date Time Status CT abdomen pelvis w con* [id number] Stat Cat Scan 01/01/23 19:56 Completed Pending at discharge Category Date Time Status Anaerobic Culture Routine Lab 01/02/23 11:46 Results Blood Culture Stat Lab 01/01/23 20:36 Results MRSA [Methicillin Resistant S.aureu] Routine Lab 01/01/23 21:34 Ordered Wound Culture Stat Lab 01/01/23 20:33 Received Wound Culture and Gram Stain Routine Lab 01/02/23 11:46 Results Radiology Impressions Abdomen/Pelvis CT 01/01/23 19:56 Liver: Unremarkable. Gallbladder and bile ducts: Mild biliary ductal dilation which is likely related to post cholecystectomy state. IMPRESSION: Thick-walled peripherally enhancing soft tissue density in the left perineum measuring 3.8 cm likely representing phlegmon and early left perianal abscess formation. Laboratory Results WBC 7.56 10^3/uL (3.29-11.43) 01/03/23 04:55 RBC 3.91 10^6/uL (3.85-5.65) 01/03/23 04:55 Hgb 11.60 g/dL (11.27-16.99) 01/03/23 04:55 Hct 35.5 % (36-47) L 01/03/23 04:55 MCV 90.8 fl (85-98) 01/03/23 04:55 MCH 29.7 pg (27-33) 01/03/23 04:55 MCHC 32.7 g/dL (30-55) 01/03/23 04:55 RDW 13.3 % (12.1-15.1) 01/03/23 04:55 Plt Count 230 10^3/cmm (157-399) 01/03/23 04:55 MPV 9.4 fL (7.4-10.4) 01/03/23 04:55 Neut % (Auto) 55.0 % 01/03/23 04:55 Lymph % (Auto) 27.2 % 01/03/23 04:55 [place] % (Auto) 13.2 % 01/03/23 04:55 Eos % (Auto) 0.1 % 01/03/23 04:55 Baso % (Auto) 0.5 % 01/03/23 04:55 Neut # (Auto) 4.15 10^3/uL (1.8-7.7) 01/03/23 04:55 Lymph # (Auto) 2.1 10^3/uL (0.8-4.8) 01/03/23 04:55 [place] # (Auto) 1.0 10^3/uL (0.2-0.9) H 01/03/23 04:55 Eos # (Auto) 0.0 10^3/uL (0.0-0.8) 01/03/23 04:55 Baso # (Auto) 0.0 10^3/uL (0.0-0.1) 01/03/23 04:55 Nucleated RBC % (auto) 0 % 01/03/23 04:55 Nucleated RBCs # 0.0 /100WBC 01/03/23 04:55 Sodium 139 mmol/L (136-145) 01/03/23 04:55 Potassium 4.3 mmol/L (3.5-5.1) 01/03/23 04:55 Chloride 106 mmol/L (98-107) 01/03/23 04:55 Carbon Dioxide 23 mmol/L (22-29) 01/03/23 04:55 Anion Gap 14.3 (5-19) 01/03/23 04:55 BUN 10 mg/dL (6-20) 01/03/23 04:55 Creatinine 0.7 mg/dL (0.5-0.9) 01/03/23 04:55 GFR Calculation 90.5 mL/min (90-130) 01/03/23 04:55 Glucose 106 mg/dL (65-115) 01/03/23 04:55 Calculated Osmolality 287 mOsm/kg (285-295) 01/03/23 04:55 Lactic Acid 1.3 mmol/L (0.5-2.2) 01/01/23 20:11 Calcium 8.4 mg/dL (8.5-10.5) L 01/03/23 04:55 Phosphorus 4.4 mg/dL (2.5-4.5) 01/02/23 04:55 Magnesium 2.2 mg/dL (1.7-2.3) 01/02/23 04:55 Total Bilirubin 0.2 mg/dL (0.15-1.2) 01/03/23 04:55 AST 83 U/L (0-32) H 01/03/23 04:55 ALT 298 U/L (0-33) H 01/03/23 04:55 Alkaline Phosphatase 84 U/L (35-105) 01/03/23 04:55 Total Protein 5.6 g/dL (6.6-8.7) L 01/03/23 04:55 Albumin 3.0 g/dL (3.5-5.2) L 01/03/23 04:55 Globulin 2.6 g/dL (1.3-4.6) 01/03/23 04:55 Procalcitonin 0.08 ng/mL (0-0.5) 01/01/23 20:11 Urine Color Yellow (Yellow) 01/01/23 21:17 Urine Appearance Clear (CLEAR) 01/01/23 21:17 Urine pH 7 (5-7) 01/01/23 21:17 Ur Specific [place] 1.005 (1.005-1.030) 01/01/23 21:17 Urine Protein Neg (Negative) 01/01/23 21:17 Urine Glucose (UA) Norm (Normal) 01/01/23 21:17 Urine Ketones Negative (Negative) 01/01/23 21:17 Urine Blood 2+ (Negative) H 01/01/23 21:17 Urine Nitrate Negative (Negative) 01/01/23 21:17 Urine Bilirubin Neg (Negative) 01/01/23 21:17 Urine Urobilinogen Neg mg/dL (Negative) 01/01/23 21:17 Ur Leukocyte Esterase Negative (Negative) 01/01/23 21:17 Urine RBC 5-10 /hpf (0-2) H 01/01/23 21:17 Urine WBC None /hpf (0-5) 01/01/23 21:17 Ur Squamous Epith Cells 10-15 /hpf (0-5) H 01/01/23 21:17 Amorphous Sediment Not Reportable 01/01/23 21:17 Urine Bacteria 1+ /hpf (NONE) H 01/01/23 21:17 Urine HCG, Qual Negative (Negative) 01/02/23 11:12 Hepatitis A IgM Ab Non-reactive (Nonreactive) 01/03/23 04:55 Hep Bs Antigen Non-reactive (Nonreactive) 01/03/23 04:55 Hep Bs Antibody 42.5 (11.5-1000) 01/03/23 04:55 Hep B Core Total Ab Non-reactive (Nonreactive) 01/03/23 04:55 Hepatitis C Antibody Non-reactive (Nonreactive) 01/03/23 04:55 Vitals Last Vital Signs Temp 97.8 F 01/03/23 11:28 Pulse 85 01/03/23 11:28 Resp 18 01/03/23 11:28 BP 118/73 01/03/23 11:28 Pulse Ox 94 01/03/23 11:28 O2 Del Method Room Air 01/03/23 11:28 Discharge Plan Discharge Patient Disposition: Home Condition: Stable Prescriptions: New tramadol 50 mg tablet 50 mg PO TID PRN (Reason: pain) 7 Days Qty: 20 0RF hydrocodone-acetaminophen 5-325 mg tablet 1 tab PO Q8H PRN (Reason: pain) 7 Days Qty: 20 0RF amoxicillin-pot clavulanate 875-125 mg tablet 1 tab PO BID 10 Days Qty: 20 0RF levofloxacin 750 mg tablet 750 mg PO DAILY 10 Days Qty: 10 0RF lactulose 10 gram/15 mL solution 10 g PO BID Qty: 237 0RF Continued multivitamin Tablet 1 tab PO DAILY Miralax 17 gram Powder In Packet 17 g PO DAILY Compazine 10 mg Tablet 10 mg PO Q6H PRN (Reason: Nausea) Zofran ODT 8 mg Tablet,Disintegrating 8 mg PO Q8H PRN (Reason: Nausea) Xanax 0.25 mg Tablet 0.25 mg PO TID PRN (Reason: Anxiety) Rx Instructions: patient states her insurance wouldn't cover this, so she hasn't been taking it dexamethasone 4 mg Tablet 4 mg PO DAILY PRN (Reason: after chemo) hydroxyzine HCl 25 mg Tablet 25 mg PO QID PRN (Reason: Anxiety) Calcium + Vitamin D 600 mg calcium- 200 unit Tablet 1 tab PO BID Claritin 10 mg Tablet 10 mg PO DAILY senna 8.6 mg Capsule 8.6 mg PO DAILY Discharge Orders: Discharge Order (Routine); Ordered 01/03/23 Ordered By: Hiral Baez Other Ambulatory Orders: Liver Panel (Routine) Timeframe: 1 Week Facility: [facility] - Location: Lab - Main Lab Ordered By: Hiral Baez Referrals: Alfie Blackwell MD [Physician] - 1 week Nathaniel Haywood MD [Physician] - 7-10 days Discharge Diet: Advance as tolerated Discharge Activity: Resume usual activity and Increase activity as tolerated Patient Instructions: Opioid Safety Discharge Attestations Time Spent in Discharge Care*: greater than 30 min Quality Metrics Clinical Quality Measures [ No reported AMI, CVA or VTE this stay] Coding Level of Care Code Acute Code for Chg Fwd Diagnoses Abscess, perianal K61.0 Fever R50.9 Breast cancer, left breast C50.912 Constipation K59.00
--- NOTE | 2023-01-03 12:38 | PM.PN ---
Subjective Subjective: Progress after surgery, white count has remained normal, no evidence of fluid or discharge, patient has been able to have a bowel movement. Vitals/I&O/Wt Last Vital Signs Temp 97.8 F 01/03/23 11:28 Pulse 85 01/03/23 11:28 Resp 18 01/03/23 11:28 BP 118/73 01/03/23 11:28 Pulse Ox 94 01/03/23 11:28 O2 Del Method Room Air 01/03/23 11:28 01/02/23 01/03/23 01/03/23 22:59 06:59 14:59 Intake Total 858.500 / 908.500 350 / 1258.500 50 / 50 Output Total 550 / 2455 300 / 2755 200 / 200 Balance 308.500 / -1546.500 50 / -1496.500 -150 / -150 Weight last 48 hrs Weight 239 lb Weight 239 lb Weight 236 lb 7 oz Weight 229 lb 12.8 oz Weight 200 lb Physical Exam GI: OTHER: On the rectal exam, there is a 1 cm wound on the left anal margin about 1 cm from the anal verge, the packing was removed no evidence of residual purulence no evidence of further induration of the tissue. Data 01/03/23 04:55 01/03/23 04:55 Micro: Microbiology 01/01/23 20:36 Blood Culture - Preliminary Blood NEGATIVE TO DATE 01/01/23 20:48 Blood Culture - Preliminary Blood NEGATIVE TO DATE 01/02/23 11:46 Gram Stain - Final Other Source A&P Assessment and plan (1) Abscess, perianal: Plan Excellent progress after I&D of perianal abscess, patient can continue wound care at home with sitz bath's 3 times a day for 1 week, I will see her in the clinic in 1 week and at that time we will assess the wound healing process. In addition, patient will have antibiotic therapy for about 5 days. There is no contraindication from the surgical standpoint to continue treatment for breast cancer. She should follow-up with primary provider for this. Attestations Medical Necessity Statement*: Patient is cleared for discharge from the general surgery standpoint. Coding Level of Care Code Acute Code for [facility] Diagnoses Abscess, perianal K61.0
== END 2023-01-03 14:55 | disposition home or self-care (01) ==
LOC: ER 21:00 → MEDSURG 21:00
PROVIDERS: Anesthesiology; Surgery; Admitting Provider Internal Medicine; Emergency Provider Emergency Medicine; Visit Provider Student in an Organized Health Care Education/Training Program
PROC: (CPT 46050; principal; 2023-01-02 12:00)
DX: K61.0 Anal abscess (principal); Z85.3 Personal history of malignant neoplasm of breast; K64.4 Residual hemorrhoidal skin tags; R50.9 Fever, unspecified; C50.912 Malignant neoplasm of unspecified site of left female breast; K59.00 Constipation, unspecified; Z87.891 Personal history of nicotine dependence
CPT/HCPCS: 46050; 36415; 74177; 80053; 81001; 81025; 83605; 83735; 84100; 84145; 84703; 85025; 86705; 86706; 86709; 86803; 87040; 87070; 87075; 87077; 87186; 87205; 87340; 96365; 96375; 96376; 99285; G0378; J1100; J1170; J1200; J1885; J2405; J2543; J2704; J2710; J3010; J3370; J3490; J7030; Q0164; Q9967

== ENCOUNTER → 2023-01-07 10:12 | Outpatient (BNVA) | payer MEDICAID, SELFPAY | PROVIDERS: Visit Provider Family Medicine Adult Medicine | DX: R74.01 Elevation of levels of liver transaminase levels (principal) | CPT/HCPCS: 80076 ==

== ENCOUNTER → 2023-01-13 08:54 | Outpatient (BNVA) | payer MEDICAID, SELFPAY | PROVIDERS: Visit Provider Surgery | DX: K61.0 Anal abscess (principal); Z98.890 Other specified postprocedural states | CPT/HCPCS: 99024 ==

== ENCOUNTER 2023-03-04 18:27 | Emergency (ER) | payer MEDICAID, SELFPAY ==
[2023-03-04 18:38] VITALS: BP 138/91; PULSE 147; RESP 16; TEMP 39; O2SAT 95; BMI 34.9
--- NOTE | 2023-03-04 18:44 | XRR_ITS ---
PROCEDURE INFORMATION: Exam: XR Chest Exam date and time: 03/04/2023 6:55 PM Age: 47 years old Clinical indication: Fever; Prior surgery; Surgery date: 1-6 months; Surgery type: Lt breast biopsy breast CA; Additional info: Fever, on chemo TECHNIQUE: Imaging protocol: Radiologic exam of the chest. Views: 1 view. COMPARISON: CR XR chest 1V [id number] 06/24/2017 7:10 PM FINDINGS: Tubes, catheters and devices: Right-sided Port-A-Cath with tip at the atrial caval junction. Lungs: Bibasilar atelectasis versus minimal infiltrate. Pleural spaces: Unremarkable. No pleural effusion. No pneumothorax. Heart/Mediastinum: Unremarkable. No cardiomegaly. Bones/joints: Unremarkable. XR/XR chest 1V [id number] IMPRESSION: 1. Right-sided Port-A-Cath with tip at the atrial caval junction. 2. Bibasilar atelectasis versus minimal infiltrate.
--- NOTE | 2023-03-04 18:58 | ED_ITS ---
HPI - Fever 2 General: Chief Complaint: Fever Stated Complaint: fever on chemo Time Seen by Provider: 03/04/23 18:46 Source: patient Mode of arrival: ambulatory Limitations: no limitations History of Present Illness: 47-year-old female with a history of noe ast cancer she is currently on chemo. She states she had received chemo on Friday states she has not had any neutropenia she has had cough and congestion and had a temperature today. She denies any vomiting or diarrhea Associated symptoms: Deny abdominal pain, chills, chest pain, diarrhea, dysuria, headache(s), nausea or vomiting Review of Systems 2 Const: Reports: fever(s); Denies: chills, body aches or change in appetite Eyes: Denies: blurry vision or eye discomfort ENMT: Denies: throat pain or dental pain Card: Denies: chest pain Resp: Reports: non-productive cough; Denies: dyspnea GI: Denies: abdominal pain, nausea, vomiting or diarrhea : Denies: dysuria Musc: Denies: neck pain or back pain Skin/Breast: Denies: rash Neuro: Denies: headache(s) PFSH ED 2 PFSH: Medical History Cervical dysplasia Migraine Breast cancer, left breast Surgical History (Updated 01/13/23 @ 09:09 by ADELAIDA Reinoso) Status post patience-rectal abscess repair, follow-up exam Fistula 10 years ago and perirectal abscess surgery 01/02/2023, Dr. Blackwell History of cholecystectomy H/O left breast biopsy Family History Mother Sarcoidosis Social History Smoking and tobacco/nicotine status: former use of tobacco/nicotine Alcohol intake: never Substance/Drug Use: never Physical Exam 2 Const: COMMON NORMALS: patient oriented x3 HENMT: COMMON NORMALS: normocephalic and atraumatic HEAD & SCALP: n ormocephalic and atraumatic Eye: COMMON NORMALS: Equal, round and reactive pupils present and EOMs intact bilaterally PUPIL: Yes Equal, round and reactive pupils present Neck/C-Spine: COMMON NORMALS: full ROM and supple Chest: COMMONS NORMALS: normal inspection of the chest and normal palpation of entire chest wall Resp: COMMON NORMALS: normal respiratory effort, No retractions, No use of accessory muscles and clear to auscultation bilaterally AUSCULTATION: clear to auscultation bilaterally Cardio: COMMON NORMALS: regular rate, regular rhythm and No murmurs present (Cardio) RATE: regular rate RHYTHM: regular rhythm GI: COMMON NORMALS: Normal to inspection, nondistended, normoactive bowel sounds present, Soft to palpation, non-tender and no masses PALPATION: Yes Soft to palpation Extremity: COMMON NORMALS: normal to inspection and full ROM Neuro: COMMON NORMALS: patient oriented x3, moves all extremities and no focal motor deficits Psych: COMMON NORMALS: mental status grossly normal, Normal thought process present and cooperative THOUGHT PROCESS: Normal thought process present Skin: COMMON NORMALS: no rashes or lesions noted and no wounds GENERAL SKIN EXAM: no rashes or lesions noted Course 2 Vital Signs: Vital signs: Vital Signs Temperature 98.1 F 03/04/23 20:49 Pulse Rate 110 H 03/04/23 20:35 Respiratory Rate 18 03/04/23 20:49 Blood Pressure 102/59 03/04/23 20:49 Pulse Oximetry 94 03/04/23 20:49 Oxygen Delivery Me thod Room Air 03/04/23 20:35 MDM - Fever Medical Decision Making Patient presents here with a fever she is not neutropenic she is well-appearing here. It is likely a viral upper respiratory infection she is nonseptic appearing no signs of bacterial pneumonia white count here is normal did speak to her oncology team and she is to follow-up with them return if worsening. Medical Records I reviewed the patient's medical records. Lab Data I reviewed the patient's lab results. 03/04/23 19:12 03/04/23 19:12 Radiology Impressions Chest X-Ray 03/04/23 18:44 IMPRESSION: 1. Right-sided Port-A-Cath with tip at the atrial caval junction. 2. Bibasilar atelectasis versus minimal infiltrate. Laboratory Results WBC 6.73 10^3/uL (3.29-11.43) 03/04/23 19:12 RBC 4.50 10^6/uL (3.85-5.65) 03/04/23 19:12 Hgb 13.60 g/dL (11.27-16.99) 03/04/23 19:12 Hct 40.2 % (36-47) 03/04/23 19:12 MCV 89.3 fl (85-98) 03/04/23 19:12 MCH 30.2 pg (27-33) 03/04/23 19:12 MCHC 33.8 g/dL (30-55) 03/04/23 19:12 RDW 15.5 % (12.1-15.1) H 03/04/23 19:12 Plt Count 214 10^3/cmm (157-399) 03/04/23 19:12 MPV 10.6 fL (7.4-10.4) H 03/04/23 19:12 Neut % (Auto) 89.7 % 03/04/23 19:12 Lymph % (Auto) 4.5 % 03/04/23 19:12 [place] % (Auto) 4.5 % 03/04/23 19:12 Eos % (Auto) 0.0 % 03/04/23 19:12 Baso % (Auto) 0.6 % 03/04/23 19:12 Neut # (Auto) 6.04 10^3/uL (1.8-7.7) 03/04/23 19:12 Lymph # (Auto) 0.3 10^3/uL (0.8-4.8) L 03/04/23 19:12 [place] # (Auto) 0.3 10^3/uL (0.2-0.9) 03/04/23 19:12 Eos # (Auto) 0.0 10^3/uL (0.0-0.8) 03/04/23 19:12 Baso # (Auto) 0.0 10^3/uL (0.0-0.1) 03/04/23 19:12 Nucleated RBC % (auto) 0 % 03/04/23 19: Nucleated RBCs # 0.0 /100WBC 03/04/23 19:12 Sodium 135 mmol/L (136-145) L 03/04/23 19:12 Potassium 3.9 mmol/L (3.5-5.1) 03/04/23 19:12 Chloride 100 mmol/L (98-107) 03/04/23 19:12 Carbon Dioxide 23 mmol/L (22-29) 03/04/23 19:12 Anion Gap 15.9 (5-19) 03/04/23 19:12 BUN 12 mg/dL (6-20) 03/04/23 19:12 Creatinine 0.6 mg/dL (0.5-0.9) 03/04/23 19:12 GFR Calculation 108.1 mL/min (90-130) 03/04/23 19:12 Glucose 126 mg/dL (65-115) H 03/04/23 19:12 Calculated Osmolality 281 mOsm/kg (285-295) L 03/04/23 19:12 Lactic Acid 2.2 mmol/L (0.5-2.2) 03/04/23 19:12 Calcium 9.0 mg/dL (8.5-10.5) 03/04/23 19:12 Total Bilirubin 0.3 mg/dL (0.15-1.2) 03/04/23 19:12 AST 23 U/L (0-32) 03/04/23 19:12 ALT 50 U/L (0-33) H 03/04/23 19:12 Alkaline Phosphatase 66 U/L (35-105) 03/04/23 19:12 Total Protein 6.9 g/dL (6.6-8.7) 03/04/23 19:12 Albumin 4.1 g/dL (3.5-5.2) 03/04/23 19:12 Globulin 2.8 g/dL (1.3-4.6) 03/04/23 19:12 Procalcitonin 0.13 ng/mL (0-0.5) 03/04/23 19:12 Urine Color Yellow (Yellow) 03/04/23 19:52 Urine Appearance Clear (CLEAR) 03/04/23 19:52 Urine pH 7 (5-7) 03/04/23 19:52 Ur Specific [place] 1.010 (1.005-1.030) 03/04/23 19:52 Urine Protein Neg (Negative) 03/04/23 19:52 Urine Glucose (UA) Norm (Normal) 03/04/23 19:52 Urine Ketones Negative (Negative) 03/04/23 19:52 Urine Blood 2+ (Negative) H 03/04/23 19:52 Urine Nitrate Negative (Negative) 03/04/23 19:52 Urine Bilirubin Neg (Negative) 03/04/23 19:52 Urine Urobilinogen Norm mg/dL (Negative) 03/04/23 19:52 Ur Leukocyte Esterase Negative (Negative) 03/04/23 19:52 Urine RBC 0-4 /hpf (0-2) H 03/04/23 19:52 Urine WBC None /hpf (0-5) 03/04/23 19:52 Ur Squamous Epith Cells 0-4 /hpf (0-5) H 03/04/23 19:52 Amorphous Sediment Not Reportable 03/04/23 19:52 Urine Bacteria None /hpf (NONE) 03/04/23 19:52 Urine Mucus None /hpf 03/04/23 19:52 Influenza Type A Ag negative (Negative) 03/04/23 19:19 Influenza Type B Ag negative (Negative) 03/04/23 19:19 SARS-CoV-2 Ag (Rapid) negative (Negative) 03/04/23 19:19 XR interpretation done by ED provider, pending radiology final review Discharge Plan Discharge Patient Disposition: Home Clinical Impression: Fever Upper respiratory infection Qualifiers: URI type: unspecified URI Qualified Code(s): J06.9 - Acute upper respiratory infection, unspecified Condition: Stable Prescriptions: No Action multivitamin Tablet 1 tab PO DAILY Miralax 17 gram Powder In Packet 17 g PO DAILY Compazine 10 mg Tablet 10 mg PO Q6H PRN (Reason: Nausea) ondansetron 8 mg Tablet,Disintegrating 8 mg PO Q8H PRN (Reason: Nausea) Xanax 0.25 mg Tablet 0.25 mg PO TID PRN (Reason: Anxiety) Rx Instructions: patient states her insurance wouldn't cover this, so she hasn't been taking it dexamethasone 4 mg Tablet 4 mg PO DAILY PRN (Reason: after chemo) hydroxyzine HCl 25 mg Tablet 25 mg PO QID PRN (Reason: Anxiety) calcium carbonate-vitamin D2 600 mg calcium- 200 unit Tablet 1 tab PO BID Claritin 10 mg Tablet 10 mg PO DAILY senna 8.6 mg Capsule 8.6 mg PO DAILY lactulose 10 gram/15 mL solution 10 g PO BID Qty: 237 0RF Discharge Orders: Discharge ED (Routine); Ordered 03/04/23 Ordered By: Robson Chiu Referrals: Obed Arias MD [Primary Care Provider] - 1-3 days Discharge Diet: Advance as tolerated Discharge Activity: Resume usual activity Patient Instructions: Upper Respiratory Infection (ED) Coding Level of Care Code ED Library Paraprofessional for Nilo Lauren
[2023-03-04] MEDS: sodium chloride 0.9% 1,000 ML 999 ML IV (19:13)
[2023-03-04] MEDS: acetaminophen 500 mg Tablet 1000 MG PO (19:15)
[2023-03-04 20:00] LABS: Basophils % 0.6 %; Hematocrit 40.2 % (36-47); Lymphocytes # 0.3 10^3/uL (0.8-4.8); Lymphocytes % 4.5 %; Mean Corpuscular HGB Conc 33.8 g/dL (30-55); Mean Corpuscular Hemoglobin 30.2 pg (27-33); Mean Corpuscular Volume 89.3 fl (85-98); Mean Platelet Volume 10.6 fL (7.4-10.4); Monocytes # 0.3 10^3/uL (0.2-0.9); Monocytes % 4.5 %; Neutrophils # 6.04 10^3/uL (1.8-7.7); Neutrophils % 89.7 %; Nucleated Red Blood Cells % 0 %; Platelet Count 214 10^3/cmm (157-399); Red Cell Distribution Width 15.5 % (12.1-15.1); White Blood Count 6.73 10^3/uL (3.29-11.43)
[2023-03-04 20:15] LABS: Influenza A by IFA negative (Negative); Influenza B by IFA negative (Negative)
[2023-03-04 20:16] LABS: SARS Covid-2 Antigen negative (Negative)
[2023-03-04 20:21] LABS: Add Urine Microscopic? YES; Bilirubin Urine Neg (Negative); Blood Urine 2+ (Negative); Glucose Urine UA Norm (Normal); Ketones Urine Negative (Negative); Leukocyte Esterase Urine Negative (Negative); Nitrate Urine Negative (Negative); Protein Urine Neg (Negative); Urine Appearance Clear (CLEAR); Urine Color Yellow (Yellow); Urobilinogen Urine Norm (Negative); pH Urine 7 (5-7)
[2023-03-04 20:25] LABS: RBC Urine 0-4 /hpf (0-2); Squamous Epithelial Cell Urine 0-4 /hpf (0-5)
[2023-03-04 20:26] LABS: Add Urine Culture? No
[2023-03-04 20:29] LABS: Lactic Sepsis W/Reflex 2.2 mmol/L (0.5-2.2)
[2023-03-04 20:35] VITALS: BP 102/59; PULSE 110; O2SAT 94
[2023-03-04 20:42] LABS: Procalcitonin 0.13 ng/mL (0-0.5)
[2023-03-04 20:49] VITALS: BP 102/59; RESP 18; TEMP 36.7; O2SAT 94
[2023-03-04 20:53] LABS: Alanine Aminotransferase 50 U/L (0-33); Albumin Level 4.1 g/dL (3.5-5.2); Alkaline Phosphatase 66 U/L (35-105); Anion Gap 15.9 (5-19); Aspartate Amino Transferase 23 U/L (0-32); Blood Urea Nitrogen 12 mg/dL (6-20); Carbon Dioxide 23 mmol/L (22-29); Chloride 100 mmol/L (98-107); Globulin 2.8 g/dL (1.3-4.6); Glomerular Filtration Rate 108.1 mL/min (90-130); Glucose 126 mg/dL (65-115); Osmolality Calculated 281 mOsm/kg (285-295); Potassium 3.9 mmol/L (3.5-5.1); Sodium 135 mmol/L (136-145); Total Bilirubin 0.3 mg/dL (0.15-1.2); Total Protein 6.9 g/dL (6.6-8.7)
[2023-03-04 21:37] LABS: Reflex Lactate Order REFLEX LACTIC ORDERD
[2023-03-04 21:48] VITALS: BP 127/77; O2SAT 98
[2023-03-04 23:12] LABS: Adenovirus Not Detected (NOT DETECT); Chlamydia Pneumoniae Not Detected (NOT DETECT); Coronavirus 229E,HKU1,NL63,OC4 Not Detected (NOT DETECT); Human Metapneumovirus Not Detected (NOT DETECT); Human Rhinovirus/Enterovirus Not Detected (NOT DETECT); Influenza A Not Detected (NOT DETECT); Influenza A H1 Not Detected (NOT DETECT); Influenza A H1-2009 Not Detected (NOT DETECT); Influenza A H3 Not Detected (NOT DETECT); Influenza B Not Detected (NOT DETECT); Mycoplasma Pneumoniae Not Detected (NOT DETECT); Parainfluenza Virus Type 1 Not Detected (NOT DETECT); Parainfluenza Virus Type 2 Not Detected (NOT DETECT); Parainfluenza Virus Type 3 Not Detected (NOT DETECT); Parainfluenza Virus Type 4 Not Detected (NOT DETECT); Respiratory Syncytial Virus A Not Detected (NOT DETECT); Respiratory Syncytial Virus B Not Detected (NOT DETECT); SARS-COV-2 Not Detected (NOT DETECT)
== END 2023-03-04 21:52 | disposition home or self-care (01) ==
PROVIDERS: Physician Assistant; Emergency Provider Emergency Medicine; PCP Family Medicine Adult Medicine
DX: J06.9 Acute upper respiratory infection, unspecified (principal); Z87.891 Personal history of nicotine dependence; Z79.899 Other long term (current) drug therapy; Z95.828 Presence of other vascular implants and grafts
CPT/HCPCS: 36415; 71045; 80053; 81001; 83605; 84145; 85025; 87040; 87426; 87486; 87581; 87633; 87804; 96360; 99284; J7030

== ENCOUNTER → 2023-05-29 13:28 | Outpatient (BNVA) | payer MEDICAID, SELFPAY | PROVIDERS: PCP Family Medicine Adult Medicine; Visit Provider Nurse Practitioner Family | DX: L57.8 Other skin changes due to chronic exposure to nonionizing radiation (principal); D22.5 Melanocytic nevi of trunk; L81.4 Other melanin hyperpigmentation; L85.3 Xerosis cutis; D23.39 Other benign neoplasm of skin of other parts of face | CPT/HCPCS: 99203 ==

== ENCOUNTER 2023-11-26 09:35 | Emergency (ER) | payer MEDICAID, SELFPAY ==
[2023-11-26 09:42] VITALS: BP 174/109; PULSE 108; RESP 17; TEMP 37.1; O2SAT 98; BMI 34.7
--- NOTE | 2023-11-26 09:58 | CT_ITS ---
WS: [id number] CT HEAD TECHNIQUE: Noncontrast CT of the head obtained from the skullbase to the vertex. CLINICAL INFORMATION: Recurrent headaches, new onset with nausea and vomiting COMPARISON: None. DLP: 1069.[address] scans at [facility] use at least one of these dose optimization techniques: automated e xposure control; mA and/or kV adjustment per patient size (includes targeted exams where dose is matc hed to clinical indication); or iterative reconstruction. FINDINGS: No evidence of intracranial hemorrhage or mass effect. Ventricular system and basal cisterns are weller nt. No extra-axial fluid collections. No evidence of mass or mass effect. Normal rooney-white differen tiation. Paranasal sinuses and mastoid air cells are well aerated. .Normal visualized soft tissues. CT/CT head wo con* [id number] IMPRESSION: 1. No evidence of intracranial hemorrhage or mass effect. 2. No acute intracranial findings.
--- NOTE | 2023-11-26 10:00 | ED_ITS ---
HPI - General Adult 2 General: Chief complaint: General Medical Stated complaint: high bp Time Seen by Provider: 11/26/23 09:54 History of Present Illness: 48-year-old female presents with just ge neralized malaise has been going on for a while has been getting some recurrent headaches with some associated nausea and vomiting. She reports that the headaches have been going on for a while but has been low but worse over the last few days. She denies a history of headaches. Patient also reports that her blood pressures have been going up in the last 3 days continue to just increase and she is not sure why. Associated symptoms: Reports headache(s), malaise, nausea and vomiting; Deny chest pain, dyspnea or palpitations Related Data Home Medications Medication Instructions Recorded Confirmed alprazolam 0.25 mg tablet (Xanax) 0.25 mg PO TID PRN Anxiety 01/01/23 11/26/23 loratadine 10 mg tablet (Claritin) 20 mg PO DAILY 01/01/23 11/26/23 multivitamin 1 tab PO DAILY 01/01/23 11/26/23 ondansetron 8 mg disintegrating 8 mg PO Q8H PRN Nausea 01/01/23 11/26/23 tablet calcium carbonate 600 mg-vitamin 1 tab PO DAILY 11/26/23 11/26/23 D3 5 mcg (200 unit) tablet diphenhydramine 25 1 tab PO PRN PRN Pain 11/26/23 11/26/23 mg-acetaminophen 500 mg tablet (Tylenol PM Extra Strength) duloxetine 30 mg capsule,delayed 30 mg PO DAILY 11/26/23 11/26/23 release hydrocodone 5 mg-acetaminophen 325 1 tab PO Q4H PRN Pain 11/26/23 11/26/23 mg tablet omeprazole 20 mg capsule,delayed 20 mg PO PRN PRN heartburn 11/26/23 11/26/23 release Allergies Allergy/AdvReac Type Severity Reaction Status Date / Time No Known Allergies Allergy Verified 03/04/23 18:37 Review of Systems 2 Const: Reports: body aches and malaise; Denies: fever(s) or chills Card: Denies: chest pain or palpitations Resp: Denies: dyspnea or productive cough GI: Reports: nausea and vomiting; Denies: abdominal pain : Denies: flank pain or difficulty voiding Neuro: Reports: headache(s) PFSH ED 2 PFSH: Medical History Cervical dysplasia Migraine Breast cancer, left breast Surgical History (Updated 01/13/23 @ 09:09 by ADELAIDA Reinoso) Status post patience-rectal abscess repair, follow-up exam Fistula 10 years ago and perirectal abscess surgery 01/02/2023, Dr. Blackwell History of cholecystectomy H/O left breast biopsy Family History Mother Sarcoidosis Social History Smoking and tobacco/nicotine status: former use of tobacco/nicotine Alcohol intake: never Substance/Drug Use: never Physical Exam 2 Const: COMMON NORMALS: no acute distress, average body habitus and patient oriented x3 GENERAL APPEARANCE: well kempt Resp: COMMON NORMALS: normal respiratory effort and No use of accessory muscles Cardio: COMMON NORMALS: regular rate and regular rhythm RATE: regular rate RHYTHM: regular rhythm GI: COMMON NORMALS: Soft to palpation and non-tender PALPATION: Yes Soft to palpation Neuro: COMMON NORMALS: patient oriented x3, moves all extremities, no focal motor deficits and no sensory deficits noted Psych: COMMON NORMALS: mental status grossly normal and cooperative A PPEARANCE: Yes grossly normal and Yes well kempt Course 2 Vital Signs: Vital signs: Vital Signs Temperature 98.8 F 11/26/23 09:42 Pulse Rate 96 11/26/23 11:35 Respiratory Rate 18 11/26/23 11:35 Blood Pressure 145/102 11/26/23 11:35 Pulse Oximetry 96 11/26/23 11:35 Oxygen Delivery Me thod Room Air 11/26/23 11:35 [facility] - General Adult Medical Decision Making Patient diagnostic studies were reviewed and show no acute findings with negative labs. Patient CT head shows no acute findings. Patient with elevated blood pressure that is new. Discussed with her the need to follow-up with her primary care provider on outpatient basis to recheck and then consider starting medication as needed. Patient was given symptoms for headache which appeared to improve. She is stable and discharged home. Lab Data 11/26/23 10:30 11/26/23 10:[address] 11/26/23 09:58 IMPRESSION: 1. No evidence of intracranial hemorrhage or mass effect. 2. No acute intracranial findings. Laboratory Results WBC 5.28 10^3/uL (3.29-11.43) 11/26/23 10:30 RBC 5.20 10^6/uL (3.85-5.65) 11/26/23 10:30 Hgb 14.80 g/dL (11.27-16.99) 11/26/23 10:30 Hct 44.7 % (36-47) 11/26/23 10:30 MCV 86.0 fl (85-98) 11/26/23 10:30 MCH 28.5 pg (27-33) 11/26/23 10:30 MCHC 33.1 g/dL (30-55) 11/26/23 10:30 RDW 15.1 % (12.1-15.1) 11/26/23 10:30 Plt Count 256 10^3/cmm (157-399) 11/26/23 10:30 MPV 8.9 fL (7.4-10.4) 11/26/23 10:30 Neut % (Auto) 53.0 % 11/26/23 10:30 Lymph % (Auto) 32.8 % 11/26/23 10:30 [place] % (Auto) 10.4 % 11/26/23 10:30 Eos % (Auto) 2.5 % 11/26/23 10:30 Baso % (Auto) 0.9 % 11/26/23 10:30 Neut # (Auto) 2.80 10^3/uL (1.8-7.7) 11/26/23 10:30 Lymph # (Auto) 1.7 10^3/uL (0.8-4.8) 11/26/23 10:30 [place] # (Auto) 0.6 10^3/uL (0.2-0.9) 11/26/23 10:30 Eos # (Auto) 0.1 10^3/uL (0.0-0.8) 11/26/23 10:30 Baso # (Auto) 0.1 10^3/uL (0.0-0.1) 11/26/23 10:30 Nucleated RBC % (auto) 0 % 11/26/23 10:30 Nucleated RBCs # 0.0 /100WBC 11/26/23 10:30 ESR 14 mm/hr (0-15) 11/26/23 10:30 Sodium 136 mmol/L (136-145) 11/26/23 10:30 Potassium 3.8 mmol/L (3.5-5.1) 11/26/23 10:30 Chloride 105 mmol/L (98-107) 11/26/23 10:30 Carbon Dioxide 22 mmol/L (22-29) 11/26/23 10:30 Anion Gap 12.8 (5-19) 11/26/23 10:30 BUN 12 mg/dL (6-20) 11/26/23 10:30 Creatinine 0.6 mg/dL (0.5-0.9) 11/26/23 10:30 GFR Calculation 107.6 mL/min (90-130) 11/26/23 10:30 Glucose 95 mg/dL (65-115) 11/26/23 10:30 Calculated Osmolality 282 mOsm/kg (285-295) L 11/26/23 10:30 Calcium 8.6 mg/dL (8.5-10.5) 11/26/23 10:30 Magnesium 2.2 mg/dL (1.7-2.3) 11/26/23 10:30 Total Bilirubin 0.3 mg/dL (0.15-1.2) 11/26/23 10:30 AST 17 U/L (0-32) 11/26/23 10:30 ALT 31 U/L (0-33) 11/26/23 10:30 Alkaline Phosphatase 103 U/L (35-105) 11/26/23 10:30 C-Reactive Protein 3.0 mg/L (0.0-4.9) 11/26/23 10:30 Total Protein 7.0 g/dL (6.6-8.7) 11/26/23 10:30 Albumin 3.9 g/dL (3.5-5.2) 11/26/23 10:30 Globulin 3.1 g/dL (1.3-4.6) 11/26/23 10:30 TSH 1.56 uIU/mL (0.27-4.20) 11/26/23 10:30 Urine Color Yellow (Yellow) 11/26/23 10:30 Urine Appearance Clear (CLEAR) 11/26/23 10:30 Urine pH 6.5 (5-7) 11/26/23 10:30 Ur Specific [place] 1.022 (1.005-1.030) 11/26/23 10:30 Urine Protein Negative (Negative) 11/26/23 10:30 Urine Glucose (UA) Negative (Normal) 11/26/23 10:30 Urine Ketones Negative (Negative) 11/26/23 10:30 Urine Blood Non-haemolysed trace (Negative) 11/26/23 10:30 Urine Nitrate Negative (Negative) 11/26/23 10:30 Urine Bilirubin Negative (Negative) 11/26/23 10:30 Urine Urobilinogen 1.0 mg/dL (Negative) 11/26/23 10:30 Ur Leukocyte Esterase Negative (Negative) 11/26/23 10:30 Urine RBC 6-10 /hpf (0-2) 11/26/23 10:30 Urine WBC 0-5 /hpf (0-5) 11/26/23 10:30 Ur Squamous Epith Cells 0-5 /hpf (0-5) 11/26/23 10:30 Amorphous Sediment Not Reportable 11/26/23 10:30 Urine Bacteria None seen /hpf (NONE) 11/26/23 10:30 Hyaline Casts 1.21 /lpf 11/26/23 10:30 All radiology interpretation(s) finalized by discharge Discharge Plan Discharge Patient Disposition: Home Clinical Impression: HBP (high blood pressure) Qualifiers: Hypertension type: unspecified Qualified Code(s): I10 - Essential (primary) hypertension Headache Qualifiers: Headache chronicity pattern: unspecified pattern Intractability: not intractable Condition: Stable Prescriptions: No Action hydrocodone-acetaminophen 5-325 mg tablet 1 tab PO Q4H PRN (Reason: Pain) calcium carbonate-vitamin D3 [Calcium + D] 600 mg-5 mcg (200 unit) Tablet 1 tab PO DAILY diphenhydramine-acetaminophen [Tylenol PM Extra Strength] 25-500 mg Tablet 1 tab PO PRN PRN (Reason: Pain) duloxetine 30 mg capsule,delayed release(DR/EC) 30 mg PO DAILY omeprazole 20 mg capsule,delayed release(DR/EC) 20 mg PO PRN PRN (Reason: heartburn ) multivitamin Tablet 1 tab PO DAILY ondansetron 8 mg Tablet,Disintegrating 8 mg PO Q8H PRN (Reason: Nausea) alprazolam [Xanax] 0.25 mg Tablet 0.25 mg PO TID PRN (Reason: Anxiety) loratadine [Claritin] 10 mg Tablet 20 mg PO DAILY Discharge Orders: Discharge ED (Routine); Ordered 11/26/23 Ordered By: John Prater Referrals: Obed Arias MD [Primary Care Provider] - Discharge Diet: Usual diet Discharge Activity: Resume usual activity Patient Instructions: Headache, Hypertension (ED), Opioid Safety, Pain Management Activity Restrictions/Additional Instructions: Please follow-up with your primary care provider in a couple days to recheck your blood pressure to determine if they will need to start you on an antihypertensive medication. Coding Level of Care Code ED Manager Transfer for Nilo Lauren
[2023-11-26 10:24] VITALS: BP 164/101; PULSE 97; O2SAT 97
[2023-11-26 10:32] VITALS: BP 140/109; PULSE 102; RESP 21; O2SAT 96
[2023-11-26 10:37] LABS: Bilirubin Urine Negative (Negative); Blood Urine Non-haemolysed trace (Negative); Glucose Urine UA Negative (Normal); Ketones Urine Negative (Negative); Leukocyte Esterase Urine Negative (Negative); Nitrate Urine Negative (Negative); Protein Urine Negative (Negative); Specific Gravity, Urine 1.022 (1.005-1.030); Urine Appearance Clear (CLEAR); Urine Color Yellow (Yellow); pH Urine 6.5 (5-7)
[2023-11-26 10:41] LABS: Add Urine Microscopic? YES; Bacteria Urine None Seen /hpf; Hyaline Casts Urine 1.21 /lpf; Squamous Epithelial Cell Urine 0-5 /hpf (0-5); WBC Urine 0-5 /hpf (0-5)
[2023-11-26 10:46] LABS: Basophils # 0.1 10^3/uL (0.0-0.1); Basophils % 0.9 %; Eosinophils # 0.1 10^3/uL (0.0-0.8); Eosinophils % 2.5 %; Hematocrit 44.7 % (36-47); Lymphocytes # 1.7 10^3/uL (0.8-4.8); Lymphocytes % 32.8 %; Mean Corpuscular HGB Conc 33.1 g/dL (30-55); Mean Corpuscular Hemoglobin 28.5 pg (27-33); Mean Platelet Volume 8.9 fL (7.4-10.4); Monocytes # 0.6 10^3/uL (0.2-0.9); Monocytes % 10.4 %; Nucleated Red Blood Cells % 0 %; Platelet Count 256 10^3/cmm (157-399); Red Cell Distribution Width 15.1 % (12.1-15.1); White Blood Count 5.28 10^3/uL (3.29-11.43)
[2023-11-26 10:50] LABS: Erythrocyte Sedimentation Rate 14 mm/hr (0-15)
[2023-11-26 11:15] LABS: Alanine Aminotransferase 31 U/L (0-33); Albumin Level 3.9 g/dL (3.5-5.2); Alkaline Phosphatase 103 U/L (35-105); Anion Gap 12.8 (5-19); Aspartate Amino Transferase 17 U/L (0-32); Blood Urea Nitrogen 12 mg/dL (6-20); Calcium 8.6 mg/dL (8.5-10.5); Carbon Dioxide 22 mmol/L (22-29); Chloride 105 mmol/L (98-107); Creatinine Clr Calc Pharmacy 152.3234; Globulin 3.1 g/dL (1.3-4.6); Glomerular Filtration Rate 107.6 mL/min (90-130); Glucose 95 mg/dL (65-115); Magnesium 2.2 mg/dL (1.7-2.3); Osmolality Calculated 282 mOsm/kg (285-295); Potassium 3.8 mmol/L (3.5-5.1); Sodium 136 mmol/L (136-145); Thyroid Stimulating Hormone 1.56 uIU/mL (0.27-4.20); Total Bilirubin 0.3 mg/dL (0.15-1.2)
[2023-11-26] MEDS: sodium chloride 0.9% 1,000 ML 999 ML IV (11:24)
[2023-11-26] MEDS: ketorolac 30 mg/mL INJ 15 MG IVP (11:27)
[2023-11-26] MEDS: dexamethasone 10 mg/mL INJ IVP (11:28)
[2023-11-26] MEDS: diphenhydrAMINE 50 mg/mL SDV 1mL IVP (11:28)
[2023-11-26 11:35] VITALS: BP 145/102; PULSE 96; RESP 18; O2SAT 96
[2023-11-26] MEDS: metoclopramide 5 mg/mL SDV 2 mL 10 MG IVP (11:37)
[2023-11-26 12:17] VITALS: BP 154/105; PULSE 87; O2SAT 99
== END 2023-11-26 12:21 | disposition home or self-care (01) ==
PROVIDERS: Emergency Provider Student in an Organized Health Care Education/Training Program; PCP Family Medicine Adult Medicine
DX: I10 Essential (primary) hypertension (principal); R51.9 Headache, unspecified; Z85.3 Personal history of malignant neoplasm of breast; Z87.891 Personal history of nicotine dependence
CPT/HCPCS: 70450; 80053; 81001; 83735; 84443; 85025; 85651; 86140; 96374; 96375; 99285; J1100; J1200; J1885; J2765; J7030

== ENCOUNTER → 2023-12-01 14:30 | Outpatient (BNVA) | payer MEDICAID, SELFPAY | PROVIDERS: PCP Family Medicine Adult Medicine; Visit Provider Family Medicine | DX: R00.0 Tachycardia, unspecified (principal) | CPT/HCPCS: 93005 ==

== ENCOUNTER 2024-03-19 10:38 | Outpatient (RCR) | payer MEDICAID, SELFPAY | END 2024-03-19 23:59 | disposition home or self-care (01) | LOC: SPT 10:38 | PROVIDERS: Visit Provider Radiology Radiation Oncology | DX: I97.2 Postmastectomy lymphedema syndrome (principal) | CPT/HCPCS: 97161 ==

== ENCOUNTER 2024-04-13 08:33 | Outpatient (RCR) | payer MEDICAID, SELFPAY | END 2024-04-16 23:59 | disposition home or self-care (01) | LOC: SPT 08:33 | PROVIDERS: Visit Provider Radiology Radiation Oncology | DX: I89.0 Lymphedema, not elsewhere classified (principal) | CPT/HCPCS: 97110 ==

== ENCOUNTER → 2024-05-31 13:31 | Outpatient (BNVA) | payer MEDICAID, SELFPAY ==
[2024-06-15 13:03] VITALS: BP 145/94; BMI 36.2
== END ==
PROVIDERS: Visit Provider Nurse Practitioner Family
DX: L70.0 Acne vulgaris (principal); L57.8 Other skin changes due to chronic exposure to nonionizing radiation; L81.4 Other melanin hyperpigmentation; L85.3 Xerosis cutis; D23.39 Other benign neoplasm of skin of other parts of face; Z92.25 Personal history of immunosuppression therapy; L82.0 Inflamed seborrheic keratosis; R20.8 Other disturbances of skin sensation; Z78.9 Other specified health status; L57.0 Actinic keratosis
CPT/HCPCS: 17000; 17110; 99214

== ENCOUNTER → 2024-06-09 11:17 | Outpatient (BNVA) | payer OTHER, SELFPAY | PROVIDERS: Visit Provider Psychiatry & Neurology Psychiatry | DX: Z79.899 Other long term (current) drug therapy (principal) | CPT/HCPCS: 80061; 83036 ==

== ENCOUNTER 2024-12-08 15:54 | Outpatient (CLI) | payer MEDICAID, SELFPAY ==
[2024-06-15 13:03] VITALS: BP 145/94; BMI 36.2
--- NOTE | 2024-12-08 16:03 | XR_ITS ---
WS: [id number] Chest 2 views, 12/08/2024 Clinical Data: URI Comparison: Portable chest, 03/04/2023 Findings: There are minimal patchy opacities overlying the right diaphragm in the right middle lobe and then a patchy opacity in the lingula of the left upper lobe. No nodules, masses or effusions are seen. The heart is normal. The pulmonary vascularity is not increased. No pneumothorax is seen. There are cholecystectomy clips in the right upper quadrant. XR/XR chest 2V* [id number] Impression: Patchy opacities overlying the right diaphragm in the right middle lobe and [place] in the lingula of the left upper lobe which could represent atelectasis an d/or minimal pneumonia.
== END 2024-12-08 15:55 | disposition home or self-care (01) ==
LOC: RAD 15:55
PROVIDERS: PCP Family Medicine; Visit Provider Registered Nurse Neonatal Intensive Care
DX: J06.9 Acute upper respiratory infection, unspecified (principal); J98.11 Atelectasis; Z96.89 Presence of other specified functional implants
CPT/HCPCS: 71046

== ENCOUNTER → 2024-12-31 16:26 | Outpatient (BNVA) | payer MEDICAID, SELFPAY ==
[2024-06-15 13:03] VITALS: BP 145/94; BMI 36.2
== END ==
PROVIDERS: PCP Family Medicine; Visit Provider Family Medicine
DX: E66.9 Obesity, unspecified (principal)
CPT/HCPCS: 84439; 84443